=== PATIENT | female | born 1940 | race Caucasian/White ===

== ENCOUNTER 2021-07-09 11:28 | Inpatient (IN) ==
[2021-07-09] MEDS ORDERED: Isovue-370 500 ML BOTTLE IVP ONE ×2 (11:37→13:04)
[2021-07-09 12:23] LABS: Bilirubin,Urine Negative (Negative); Blood,Urine Negative (Negative); Clarity,Urine Clear (Clear); Color,Urine Yellow (Yellow); Glucose,Urine (UA) Normal (Normal); Ketones,Urine 15 mg/dL (Negative); Leukocyte Esterase,Urine Negative (Negative); Nitrite,Urine Negative (Negative); PH,Urine 5.5 pH Units (5.0-8.0); Protein,Urine 30 mg/dL (Neg-Trace); Specific Gravity,Urine >= 1.030 (1.010-1.025); Urobilinogen,Urine Normal (Normal)
[2021-07-09 12:28] LABS: Amphetamine Screen,Urine Negative ng/mL (Cutoff=1000); Barbiturate Screen,Urine Negative ng/mL (Cutoff=200); Benzodiazepines Screen,Urine Negative ng/mL (Cutoff=200); Cannabinoid Screen,Urine Negative ng/mL (Cutoff = 50); Cocaine Screen,Urine Negative ng/mL (Cutoff= 300); Opiate Screen,Urine Negative ng/mL (Cutoff=300); Phencyclidine Screen,Urine Negative ng/mL (Cutoff=25)
[2021-07-09 12:36] LABS: Hyaline Casts,Urine Moderate per lpf (None Seen); Mucus,Urine Few per lpf (None-Few); RBC,Urine 0-3 per hpf (0-3); WBC,Urine 0-3 per hpf (0-3)
[2021-07-09 12:39] LABS: Hemoglobin 7.9 g/dL (11.5-15.4)
[2021-07-09 12:41] LABS: Immature Platelets 8.5 % (1.1-6.1); Mean Corpuscular HGB Conc 31.6 g/dL (31.6-35.5); Mean Corpuscular Volume 69.6 fL (83.0-100.0); Mean Platelet Volume 10.2 fL (9.4-12.4); Red Blood Count 3.59 M/mcL (3.82-4.97); Red Cell Distribution Width 18.5 % (11.5-14.5)
[2021-07-09 12:49] LABS: INR 1.8
[2021-07-09 12:51] LABS: Activated Partial Thrombo Time 42.5 Seconds (26.0-36.0)
[2021-07-09] MEDS ORDERED: cefTRIAXone 1,000 MG in 0.9 % Sodium Chloride Mini Bag 100 ML IVPB ONE (12:55)
[2021-07-09 13:00] LABS: BUN/Creatinine Ratio 109 (6-26); Blood Urea Nitrogen 37 mg/dL (8-23); Calcium 9.5 mg/dL (8.6-10.3); Carbon Dioxide 22 mEq/L (23-29); Chloride 97 mEq/L (98-107); Creatine Kinase 317 Units/L (30-223); Ethanol < 10 mg/dL (Less than 10); Glucose 84 mg/dL (70-105); Osmolality,Calculated 274 (280-300); Potassium 4.3 mEq/L (3.5-5.1); Sodium 128 mEq/L (136-145); Troponin I < 0.03 ng/mL (< 0.04); eGFR For African Americans > 60 (> 60); eGFR For Non-African Americans > 60 (> 60)
[2021-07-09 13:30] LABS: Influenza A PCR Negative (Negative); Influenza B PCR Negative (Negative); Resp. Syncytial Virus PCR Negative (Negative); SARS-CoV-2 by PCR (In House) Negative (Negative)
[2021-07-09] MEDS ORDERED: Ipratropium/Albuterol Neb 3 ML IH PRN (15:20)
[2021-07-09 15:40] LABS: C-Reactive Protein 95 mg/L (Less than 10)
[2021-07-09] MEDS: 0.9 % Sodium Chloride 1,000 ML IVC SCH (15:50)
[2021-07-09] MEDS ORDERED: Perflutren Lipid Microsphere 1.3 ML in 0.9 % Sodium Chloride 8.7 ML IVP PRN (15:56)
[2021-07-09] MEDS ORDERED: Dextrose Gel 15 GM/37.5 ML TUBE PO PRN ×2 (20:32)
[2021-07-09] MEDS ORDERED: D5% in Water 1,000 ML IVC PRN (20:32)
[2021-07-09] MEDS: *HR* Dextrose 50 % in Water (Syg) 50 ML SYRINGE IVP PRN ×2 (20:41→23:32)
[2021-07-09] MEDS: Piperacillin/Tazobactam 3.375 GM in 0.9 % Sodium Chloride Mini Bag 100 ML IVPB SCH (23:38)
[2021-07-10 06:24] LABS: Alanine Aminotransferase 106 Units/L (7-52); Albumin 2.7 g/dL (3.5-5.7); Albumin/Globulin Ratio 0.9 (1.1-2.2); Alkaline Phosphatase 99 Units/L (34-104); Aspartate Amino Transferase 138 Units/L (13-39); BUN/Creatinine Ratio 70 (6-26); Bilirubin,Total 0.7 mg/dL (0.3-1.0); Blood Urea Nitrogen 39 mg/dL (8-23); Calcium 9.1 mg/dL (8.6-10.3); Carbon Dioxide 20 mEq/L (23-29); Chloride 101 mEq/L (98-107); Chol/HDL Ratio 2.3 (0-4.9); Cholesterol 100 mg/dL (< 200); Globulin 2.9 g/dL (2.4-3.5); Glucose 73 mg/dL (70-105); HDL Cholesterol 44 mg/dL (40-59); LDL Cholesterol,Calculated 44 mg/dL (< 100); Osmolality,Calculated 278 (280-300); Potassium 4.8 mEq/L (3.5-5.1); Sodium 130 mEq/L (136-145); Total Protein 5.6 g/dL (6.4-8.9); Triglycerides 59 mg/dL (< 150); eGFR For African Americans > 60 (> 60); eGFR For Non-African Americans > 60 (> 60)
[2021-07-10] MEDS: *HR* Enoxaparin 40 MG/0.4 ML SYRINGE SQ SCH (06:37)
[2021-07-10] MEDS: 0.9 % Sodium Chloride 1,000 ML IVC SCH (08:15)
[2021-07-10] MEDS: Aspirin Enteric Coated 81 MG Tablet PO SCH (08:16)
[2021-07-10] MEDS: Piperacillin/Tazobactam 3.375 GM in 0.9 % Sodium Chloride Mini Bag 100 ML IVPB SCH ×2 (08:16→23:11)
[2021-07-10] MEDS ORDERED: cefTRIAXone 1,000 MG in Water for inj. (sterile) 10 ML IVP SCH (09:00)
[2021-07-10 10:46] LABS: Basophils % 0.1 %; Eosinophils % 0.1 %; Hemoglobin 7.9 g/dL (11.5-15.4); Monocytes % 4.9 %; Red Cell Distribution Width 18.9 % (11.5-14.5)
[2021-07-10 10:47] LABS: Hematocrit 25.3 % (35.3-44.9); Immature Granulocytes % 0.6 % (0-4); Immature Platelets 9.2 % (1.1-6.1); Lymphocytes # 0.5 K/mcL (0.6-4.6); Lymphocytes % 2.7 %; Mean Corpuscular HGB Conc 31.2 g/dL (31.6-35.5); Mean Corpuscular Hemoglobin 21.9 pg (28.0-33.3); Mean Corpuscular Volume 70.3 fL (83.0-100.0); Monocytes # 0.8 K/mcL (0.0-1.3); Neutrophils # 15.5 K/mcL (1.6-8.9); Nucleated Red Blood Cells 1.2 /100 WBC (0); Platelet Count 184 K/mcL (140-400); Segmented Neutrophils % 91.6 %; White Blood Count 16.9 K/mcL (4.3-11.1)
[2021-07-10 11:07] LABS: Estimated Average Glucose 131 mg/dl; Hemoglobin A1C 6.2 %
[2021-07-10 11:38] LABS: Iron < 10 mcg/dL (50-170)
[2021-07-11 00:55] LABS: Alanine Aminotransferase 97 Units/L (7-52); Albumin 2.3 g/dL (3.5-5.7); Albumin/Globulin Ratio 0.9 (1.1-2.2); Alkaline Phosphatase 77 Units/L (34-104); Aspartate Amino Transferase 116 Units/L (13-39); BUN/Creatinine Ratio 105 (6-26); Bilirubin,Total 0.6 mg/dL (0.3-1.0); Blood Urea Nitrogen 42 mg/dL (8-23); Calcium 8.6 mg/dL (8.6-10.3); Carbon Dioxide 22 mEq/L (23-29); Chloride 105 mEq/L (98-107); Globulin 2.6 g/dL (2.4-3.5); Glucose 73 mg/dL (70-105); Osmolality,Calculated 287 (280-300); Potassium 4.1 mEq/L (3.5-5.1); Sodium 134 mEq/L (136-145); Total Protein 4.9 g/dL (6.4-8.9); eGFR For African Americans > 60 (> 60); eGFR For Non-African Americans > 60 (> 60)
[2021-07-11 02:43] LABS: Basophils % 0.1 %; Eosinophils % 0.1 %; Hematocrit 22.2 % (35.3-44.9); Hemoglobin 6.9 g/dL (11.5-15.4); Immature Granulocytes % 0.6 % (0-4); Immature Platelets 6.8 % (1.1-6.1); Lymphocytes # 0.5 K/mcL (0.6-4.6); Lymphocytes % 3.9 %; Mean Corpuscular HGB Conc 31.1 g/dL (31.6-35.5); Mean Corpuscular Hemoglobin 21.8 pg (28.0-33.3); Monocytes # 0.7 K/mcL (0.0-1.3); Neutrophils # 11.7 K/mcL (1.6-8.9); Nucleated Red Blood Cells 1.5 /100 WBC (0); Platelet Count 165 K/mcL (140-400); Red Blood Count 3.17 M/mcL (3.82-4.97); Red Cell Distribution Width 18.7 % (11.5-14.5); Segmented Neutrophils % 90.3 %; White Blood Count 12.9 K/mcL (4.3-11.1)
[2021-07-11] MEDS: *HR* Dextrose 50 % in Water (Syg) 50 ML SYRINGE IVP PRN (04:00)
[2021-07-11] MEDS: *HR* Enoxaparin 40 MG/0.4 ML SYRINGE SQ SCH (04:31)
[2021-07-11] MEDS ORDERED: 0.9 % Sodium Chloride 250 ML ONE (06:59)
[2021-07-11] MEDS: Aspirin Enteric Coated 81 MG Tablet PO SCH (07:19)
[2021-07-11] MEDS ORDERED: Iron Sucrose Complex 200 MG in 0.9 % Sodium Chloride 100 ML IVPB ONE (07:58)
[2021-07-11 08:40] LABS: ABG Base Excess -2 mEq/L (-2 to 3); ABG HCO3 24 mEq/L (21-27); ABG Oxygen Saturation 96 % (95-98); ABG PCO2 42 mmHg (35-45); ABG PH 7.36 pH Units (7.32-7.45); ABG PO2 88 mmHg (85-104); ABG TCO2 25 mEq/L (20-26)
[2021-07-11] MEDS ORDERED: Furosemide 20 MG/2 ML VIAL IVP ONE ×2 (09:45→14:00)
[2021-07-11] MEDS: Piperacillin/Tazobactam 3.375 GM in 0.9 % Sodium Chloride Mini Bag 100 ML IVPB SCH ×3 (11:41→23:21)
[2021-07-11] MEDS ORDERED: Bumetanide 1 MG/4 ML VIAL IVP SCH (17:00)
[2021-07-11 17:45] LABS: Hematocrit 27.9 % (35.3-44.9)
[2021-07-11 17:47] LABS: Hemoglobin 8.8 g/dL (11.5-15.4)
[2021-07-11 21:51] LABS: BUN/Creatinine Ratio 58 (6-26); Blood Urea Nitrogen 38 mg/dL (8-23); Calcium 8.8 mg/dL (8.6-10.3); Carbon Dioxide 24 mEq/L (23-29); Chloride 103 mEq/L (98-107); Glucose 92 mg/dL (70-105); Osmolality,Calculated 295 (280-300); Potassium 3.7 mEq/L (3.5-5.1); Sodium 138 mEq/L (136-145); eGFR For African Americans > 60 (> 60); eGFR For Non-African Americans > 60 (> 60)
[2021-07-12 03:24] LABS: Alanine Aminotransferase 121 Units/L (7-52); Albumin 2.6 g/dL (3.5-5.7); Albumin/Globulin Ratio 0.9 (1.1-2.2); Alkaline Phosphatase 96 Units/L (34-104); Aspartate Amino Transferase 137 Units/L (13-39); BUN/Creatinine Ratio 61 (6-26); Bilirubin,Total 1.1 mg/dL (0.3-1.0); Blood Urea Nitrogen 39 mg/dL (8-23); Calcium 8.9 mg/dL (8.6-10.3); Carbon Dioxide 26 mEq/L (23-29); Chloride 104 mEq/L (98-107); Globulin 2.9 g/dL (2.4-3.5); Glucose 104 mg/dL (70-105); Osmolality,Calculated 300 (280-300); Potassium 3.3 mEq/L (3.5-5.1); Sodium 140 mEq/L (136-145); Total Protein 5.5 g/dL (6.4-8.9); Vancomycin,Trough 9 mcg/mL (5-10); eGFR For African Americans > 60 (> 60); eGFR For Non-African Americans > 60 (> 60)
[2021-07-12 03:26] LABS: Basophils % 0.1 %; Mean Corpuscular Volume 71.8 fL (83.0-100.0)
[2021-07-12 03:28] LABS: Hematocrit 27.7 % (35.3-44.9); Hemoglobin 8.9 g/dL (11.5-15.4); Immature Granulocytes % 0.8 % (0-4); Lymphocytes # 0.5 K/mcL (0.6-4.6); Lymphocytes % 6.5 %; Mean Corpuscular HGB Conc 32.1 g/dL (31.6-35.5); Mean Corpuscular Hemoglobin 23.1 pg (28.0-33.3); Monocytes # 0.5 K/mcL (0.0-1.3); Monocytes % 6.6 %; Neutrophils # 6.8 K/mcL (1.6-8.9); Nucleated Red Blood Cells 3.3 /100 WBC (0); Platelet Count 167 K/mcL (140-400); Red Blood Count 3.86 M/mcL (3.82-4.97); Red Cell Distribution Width 20.7 % (11.5-14.5); White Blood Count 7.9 K/mcL (4.3-11.1)
[2021-07-12] MEDS: *HR* Enoxaparin 40 MG/0.4 ML SYRINGE SQ SCH (06:13)
[2021-07-12] MEDS: Piperacillin/Tazobactam 3.375 GM in 0.9 % Sodium Chloride Mini Bag 100 ML IVPB SCH ×2 (07:37→17:55)
[2021-07-12] MEDS: Bumetanide 1 MG/4 ML VIAL IVP SCH ×2 (07:38→17:27)
[2021-07-12] MEDS: Aspirin Enteric Coated 81 MG Tablet PO SCH (07:39)
[2021-07-12] MEDS: carvediloL 6.25 MG TABLET PO SCH (17:35)
[2021-07-13] MEDS: Piperacillin/Tazobactam 3.375 GM in 0.9 % Sodium Chloride Mini Bag 100 ML IVPB SCH ×4 (00:13→23:10)
[2021-07-13 05:22] LABS: Hemoglobin 8.5 g/dL (11.5-15.4); Immature Granulocytes % 0.9 % (0-4); Nucleated Red Blood Cells 2.2 /100 WBC (0)
[2021-07-13 05:24] LABS: Basophils % 0.3 %; Eosinophils # 0.1 K/mcL (0.0-0.6); Hematocrit 26.7 % (35.3-44.9); Immature Platelets 5.9 % (1.1-6.1); Lymphocytes # 0.9 K/mcL (0.6-4.6); Lymphocytes % 14.8 %; Mean Corpuscular HGB Conc 31.8 g/dL (31.6-35.5); Mean Corpuscular Hemoglobin 22.9 pg (28.0-33.3); Monocytes # 0.5 K/mcL (0.0-1.3); Monocytes % 7.9 %; Neutrophils # 4.4 K/mcL (1.6-8.9); Platelet Count 148 K/mcL (140-400); Red Blood Count 3.71 M/mcL (3.82-4.97); Red Cell Distribution Width 20.7 % (11.5-14.5); Segmented Neutrophils % 75.1 %; White Blood Count 5.8 K/mcL (4.3-11.1)
[2021-07-13 05:37] LABS: Alanine Aminotransferase 105 Units/L (7-52); Albumin 2.4 g/dL (3.5-5.7); Albumin/Globulin Ratio 0.9 (1.1-2.2); Alkaline Phosphatase 87 Units/L (34-104); Aspartate Amino Transferase 114 Units/L (13-39); BUN/Creatinine Ratio 63 (6-26); Bilirubin,Total 0.8 mg/dL (0.3-1.0); Blood Urea Nitrogen 36 mg/dL (8-23); Calcium 8.6 mg/dL (8.6-10.3); Carbon Dioxide 28 mEq/L (23-29); Chloride 104 mEq/L (98-107); Globulin 2.8 g/dL (2.4-3.5); Glucose 91 mg/dL (70-105); Osmolality,Calculated 298 (280-300); Potassium 3.4 mEq/L (3.5-5.1); Sodium 140 mEq/L (136-145); Total Protein 5.2 g/dL (6.4-8.9); eGFR For African Americans > 60 (> 60); eGFR For Non-African Americans > 60 (> 60)
[2021-07-13] MEDS: *HR* Enoxaparin 40 MG/0.4 ML SYRINGE SQ SCH (05:51)
[2021-07-13] MEDS: Bumetanide 1 MG/4 ML VIAL IVP SCH ×2 (07:49→16:26)
[2021-07-13] MEDS: carvediloL 6.25 MG TABLET PO SCH ×2 (07:49→16:26)
[2021-07-13] MEDS: Potassium Chloride Elixir 20 MEQ/15 ML UDC PO ONE (07:49)
[2021-07-13] MEDS: Aspirin Enteric Coated 81 MG Tablet PO SCH (07:51)
[2021-07-13 08:07] LABS: Magnesium 1.4 mg/dL (1.6-2.6)
[2021-07-13] MEDS: Potassium Chloride Elixir 20 MEQ/15 ML UDC PO SCH (23:09)
[2021-07-14] MEDS: *HR* Enoxaparin 40 MG/0.4 ML SYRINGE SQ SCH (05:23)
[2021-07-14 05:47] LABS: Hematocrit 27.2 % (35.3-44.9); Hemoglobin 8.7 g/dL (11.5-15.4); Immature Platelets 6.4 % (1.1-6.1); Mean Corpuscular Hemoglobin 23.2 pg (28.0-33.3); Mean Corpuscular Volume 72.5 fL (83.0-100.0); Platelet Count 134 K/mcL (140-400); Red Blood Count 3.75 M/mcL (3.82-4.97); Red Cell Distribution Width 21.2 % (11.5-14.5); White Blood Count 5.5 K/mcL (4.3-11.1)
[2021-07-14 06:05] LABS: BUN/Creatinine Ratio 50 (6-26); Blood Urea Nitrogen 45 mg/dL (8-23); Calcium 8.8 mg/dL (8.6-10.3); Carbon Dioxide 27 mEq/L (23-29); Chloride 104 mEq/L (98-107); Glucose 130 mg/dL (70-105); Magnesium 1.3 mg/dL (1.6-2.6); Osmolality,Calculated 303 (280-300); Potassium 3.8 mEq/L (3.5-5.1); Sodium 140 mEq/L (136-145); eGFR For African Americans > 60 (> 60); eGFR For Non-African Americans 60 (> 60)
[2021-07-14] MEDS: Piperacillin/Tazobactam 3.375 GM in 0.9 % Sodium Chloride Mini Bag 100 ML IVPB SCH ×3 (07:05→22:17)
[2021-07-14] MEDS: Potassium Chloride Elixir 20 MEQ/15 ML UDC PO SCH ×2 (09:49→22:16)
[2021-07-14] MEDS: Bumetanide 1 MG/4 ML VIAL IVP SCH ×2 (10:57→16:35)
[2021-07-14] MEDS: RisperiDAL 3 MG TABLET PO SCH (11:32)
[2021-07-14] MEDS: Aspirin Enteric Coated 81 MG Tablet PO SCH (11:32)
[2021-07-14] MEDS: carvediloL 6.25 MG TABLET PO SCH ×2 (11:36→16:32)
[2021-07-15 04:48] LABS: Hematocrit 28.9 % (35.3-44.9); Hemoglobin 9.5 g/dL (11.5-15.4); Immature Platelets 11.2 % (1.1-6.1); Mean Corpuscular HGB Conc 32.9 g/dL (31.6-35.5); Mean Corpuscular Hemoglobin 23.6 pg (28.0-33.3); Mean Corpuscular Volume 71.9 fL (83.0-100.0); Platelet Count 120 K/mcL (140-400); Red Blood Count 4.02 M/mcL (3.82-4.97); Red Cell Distribution Width 21.8 % (11.5-14.5); White Blood Count 5.7 K/mcL (4.3-11.1)
[2021-07-15 05:03] LABS: BUN/Creatinine Ratio 53 (6-26); Blood Urea Nitrogen 50 mg/dL (8-23); Calcium 8.9 mg/dL (8.6-10.3); Carbon Dioxide 26 mEq/L (23-29); Chloride 105 mEq/L (98-107); Glucose 99 mg/dL (70-105); Magnesium 1.8 mg/dL (1.6-2.6); Osmolality,Calculated 307 (280-300); Potassium 4.2 mEq/L (3.5-5.1); Sodium 142 mEq/L (136-145); eGFR For African Americans > 60 (> 60); eGFR For Non-African Americans 57 (> 60)
[2021-07-15] MEDS: *HR* Enoxaparin 40 MG/0.4 ML SYRINGE SQ SCH (06:02)
[2021-07-15] MEDS: Piperacillin/Tazobactam 3.375 GM in 0.9 % Sodium Chloride Mini Bag 100 ML IVPB SCH ×3 (06:03→23:26)
[2021-07-15] MEDS: Bumetanide 1 MG/4 ML VIAL IVP SCH ×2 (07:31→16:35)
[2021-07-15] MEDS: carvediloL 6.25 MG TABLET PO SCH ×2 (07:31→16:36)
[2021-07-15] MEDS: RisperiDAL 3 MG TABLET PO SCH (07:32)
[2021-07-15] MEDS: Potassium Chloride Elixir 20 MEQ/15 ML UDC PO SCH ×2 (07:32→21:40)
[2021-07-15] MEDS: Aspirin Enteric Coated 81 MG Tablet PO SCH (07:32)
[2021-07-15 09:53] LABS: Transferrin 308
[2021-07-16] MEDS: *HR* Enoxaparin 40 MG/0.4 ML SYRINGE SQ SCH (05:48)
[2021-07-16 07:48] LABS: BUN/Creatinine Ratio 61 (6-26); Blood Urea Nitrogen 50 mg/dL (8-23); Calcium 8.8 mg/dL (8.6-10.3); Carbon Dioxide 29 mEq/L (23-29); Chloride 109 mEq/L (98-107); Glucose 102 mg/dL (70-105); Osmolality,Calculated 316 (280-300); Potassium 3.6 mEq/L (3.5-5.1); Sodium 146 mEq/L (136-145); eGFR For African Americans > 60 (> 60); eGFR For Non-African Americans > 60 (> 60)
[2021-07-16 07:51] LABS: Red Cell Distribution Width 21.9 % (11.5-14.5)
[2021-07-16 07:56] LABS: Hematocrit 28.4 % (35.3-44.9); Mean Corpuscular HGB Conc 31.7 g/dL (31.6-35.5)
[2021-07-16 07:58] LABS: Immature Platelets 9.1 % (1.1-6.1); Mean Corpuscular Hemoglobin 23.2 pg (28.0-33.3); Mean Corpuscular Volume 73.2 fL (83.0-100.0); Red Blood Count 3.88 M/mcL (3.82-4.97); White Blood Count 4.2 K/mcL (4.3-11.1)
[2021-07-16 08:34] LABS: Platelet Count 97 K/mcL (140-400)
[2021-07-16] MEDS: Aspirin Enteric Coated 81 MG Tablet PO SCH (10:24)
[2021-07-16] MEDS: carvediloL 6.25 MG TABLET PO SCH ×2 (10:24→16:21)
[2021-07-16] MEDS: RisperiDAL 3 MG TABLET PO SCH (10:24)
[2021-07-16] MEDS: Bumetanide 1 MG/4 ML VIAL IVP SCH ×2 (10:25→16:26)
[2021-07-16] MEDS: Piperacillin/Tazobactam 3.375 GM in 0.9 % Sodium Chloride Mini Bag 100 ML IVPB SCH ×3 (10:25→23:36)
[2021-07-16] MEDS: Potassium Chloride Elixir 20 MEQ/15 ML UDC PO SCH ×2 (10:25→19:46)
[2021-07-16] MEDS ORDERED: E-Z-HD (BARIUM SULF) SUSPENSION PO ONE (15:30)
[2021-07-16] MEDS ORDERED: E-Z-PAQUE (BARIUM SULF) SUSP 1 BOTTLE PO ONE (15:30)
[2021-07-17 03:11] LABS: Basophils % 0.3 %
[2021-07-17 03:12] LABS: Eosinophils # 0.1 K/mcL (0.0-0.6); Eosinophils % 3.5 %; Hematocrit 28.6 % (35.3-44.9); Hemoglobin 8.7 g/dL (11.5-15.4); Immature Granulocytes % 0.5 % (0-4); Immature Platelets 8.7 % (1.1-6.1); Lymphocytes # 0.9 K/mcL (0.6-4.6); Lymphocytes % 22.3 %; Mean Corpuscular HGB Conc 30.4 g/dL (31.6-35.5); Mean Corpuscular Volume 75.5 fL (83.0-100.0); Monocytes # 0.3 K/mcL (0.0-1.3); Monocytes % 7.8 %; Neutrophils # 2.6 K/mcL (1.6-8.9); Nucleated Red Blood Cells 1.3 /100 WBC (0); Red Blood Count 3.79 M/mcL (3.82-4.97); Segmented Neutrophils % 65.6 %
[2021-07-17 03:20] LABS: Platelet Count 94 K/mcL (140-400)
[2021-07-17 03:26] LABS: BUN/Creatinine Ratio 71 (6-26); Blood Urea Nitrogen 48 mg/dL (8-23); Calcium 8.4 mg/dL (8.6-10.3); Carbon Dioxide 30 mEq/L (23-29); Chloride 111 mEq/L (98-107); Glucose 91 mg/dL (70-105); Osmolality,Calculated 312 (280-300); Potassium 3.3 mEq/L (3.5-5.1); Sodium 145 mEq/L (136-145); eGFR For African Americans > 60 (> 60); eGFR For Non-African Americans > 60 (> 60)
[2021-07-17] MEDS ORDERED: Potassium Chloride Elixir 20 MEQ/15 ML UDC PO ONE (07:30)
[2021-07-17] MEDS: Piperacillin/Tazobactam 3.375 GM in 0.9 % Sodium Chloride Mini Bag 100 ML IVPB SCH ×3 (08:31→22:32)
[2021-07-17] MEDS: Aspirin Enteric Coated 81 MG Tablet PO SCH (08:31)
[2021-07-17] MEDS: RisperiDAL 3 MG TABLET PO SCH (08:31)
[2021-07-17] MEDS: Potassium Chloride Elixir 20 MEQ/15 ML UDC PO SCH ×2 (08:31→20:37)
[2021-07-17] MEDS: Bumetanide 1 MG/4 ML VIAL IVP SCH (08:34)
[2021-07-17] MEDS: carvediloL 6.25 MG TABLET PO SCH ×2 (08:39→17:38)
[2021-07-17] MEDS: Bumetanide 1 MG TABLET PO SCH (17:38)
[2021-07-18 04:53] LABS: Red Cell Distribution Width 22.5 % (11.5-14.5)
[2021-07-18 04:55] LABS: Hematocrit 29.8 % (35.3-44.9); Immature Platelets 13.6 % (1.1-6.1); Mean Corpuscular HGB Conc 30.2 g/dL (31.6-35.5); Mean Corpuscular Hemoglobin 23.2 pg (28.0-33.3); Mean Corpuscular Volume 76.8 fL (83.0-100.0); Red Blood Count 3.88 M/mcL (3.82-4.97); White Blood Count 4.9 K/mcL (4.3-11.1)
[2021-07-18 05:14] LABS: BUN/Creatinine Ratio 69 (6-26); Blood Urea Nitrogen 42 mg/dL (8-23); Calcium 8.4 mg/dL (8.6-10.3); Carbon Dioxide 26 mEq/L (23-29); Chloride 108 mEq/L (98-107); Glucose 92 mg/dL (70-105); Osmolality,Calculated 300 (280-300); Potassium 4.2 mEq/L (3.5-5.1); Sodium 140 mEq/L (136-145); eGFR For African Americans > 60 (> 60); eGFR For Non-African Americans > 60 (> 60)
[2021-07-18 06:04] LABS: Platelet Count 84 K/mcL (140-400)
[2021-07-18] MEDS: carvediloL 6.25 MG TABLET PO SCH ×2 (08:04→16:52)
[2021-07-18] MEDS: Aspirin Enteric Coated 81 MG Tablet PO SCH (08:05)
[2021-07-18] MEDS: Bumetanide 1 MG TABLET PO SCH ×2 (08:05→16:51)
[2021-07-18] MEDS: Piperacillin/Tazobactam 3.375 GM in 0.9 % Sodium Chloride Mini Bag 100 ML IVPB SCH ×2 (08:05→16:52)
[2021-07-18] MEDS: RisperiDAL 3 MG TABLET PO SCH (08:05)
[2021-07-18] MEDS: Potassium Chloride Elixir 20 MEQ/15 ML UDC PO SCH ×2 (08:06→21:26)
[2021-07-19] MEDS: Piperacillin/Tazobactam 3.375 GM in 0.9 % Sodium Chloride Mini Bag 100 ML IVPB SCH ×4 (00:11→23:10)
[2021-07-19] MEDS: Aspirin Enteric Coated 81 MG Tablet PO SCH (09:38)
[2021-07-19] MEDS: RisperiDAL 3 MG TABLET PO SCH (09:38)
[2021-07-19] MEDS: carvediloL 6.25 MG TABLET PO SCH ×2 (09:38→15:58)
[2021-07-19] MEDS: Bumetanide 1 MG TABLET PO SCH ×2 (09:38→15:58)
[2021-07-19] MEDS: Potassium Chloride Elixir 20 MEQ/15 ML UDC PO SCH ×2 (09:39→19:47)
[2021-07-19 11:08] LABS: Hemoglobin 9.3 g/dL (11.5-15.4); Red Cell Distribution Width 22.5 % (11.5-14.5)
[2021-07-19 11:11] LABS: Hematocrit 30.4 % (35.3-44.9); Immature Platelets 14.7 % (1.1-6.1); Mean Corpuscular HGB Conc 30.6 g/dL (31.6-35.5); Mean Corpuscular Hemoglobin 23.6 pg (28.0-33.3); Mean Corpuscular Volume 77.2 fL (83.0-100.0); Red Blood Count 3.94 M/mcL (3.82-4.97); White Blood Count 5.5 K/mcL (4.3-11.1)
[2021-07-19 11:16] LABS: Platelet Count 95 K/mcL (140-400)
[2021-07-19 11:23] LABS: BUN/Creatinine Ratio 54 (6-26); Blood Urea Nitrogen 39 mg/dL (8-23); Calcium 8.5 mg/dL (8.6-10.3); Carbon Dioxide 27 mEq/L (23-29); Chloride 104 mEq/L (98-107); Glucose 89 mg/dL (70-105); Osmolality,Calculated 293 (280-300); Potassium 4.1 mEq/L (3.5-5.1); Sodium 137 mEq/L (136-145); eGFR For African Americans > 60 (> 60); eGFR For Non-African Americans > 60 (> 60)
[2021-07-20 07:33] LABS: Mean Corpuscular Volume 76.5 fL (83.0-100.0); Red Blood Count 3.79 M/mcL (3.82-4.97)
[2021-07-20 07:34] LABS: Immature Platelets 10.5 % (1.1-6.1); Mean Corpuscular Hemoglobin 23.7 pg (28.0-33.3); Platelet Count 121 K/mcL (140-400); Red Cell Distribution Width 22.4 % (11.5-14.5)
[2021-07-20] MEDS: Aspirin Enteric Coated 81 MG Tablet PO SCH (08:29)
[2021-07-20] MEDS: carvediloL 6.25 MG TABLET PO SCH ×2 (08:29→17:24)
[2021-07-20] MEDS: RisperiDAL 3 MG TABLET PO SCH (08:29)
[2021-07-20] MEDS: Bumetanide 1 MG TABLET PO SCH ×2 (08:29→17:24)
[2021-07-20] MEDS: Potassium Chloride Elixir 20 MEQ/15 ML UDC PO SCH ×2 (08:30→19:36)
[2021-07-21 03:57] LABS: Red Cell Distribution Width 25.2 % (11.5-14.5)
[2021-07-21 03:59] LABS: Hemoglobin 9.3 g/dL (11.5-15.4); Immature Platelets 9.7 % (1.1-6.1); Mean Corpuscular Volume 77.5 fL (83.0-100.0); Platelet Count 136 K/mcL (140-400); Red Blood Count 3.87 M/mcL (3.82-4.97); White Blood Count 11.3 K/mcL (4.3-11.1)
[2021-07-21 04:18] LABS: BUN/Creatinine Ratio 41 (6-26); Blood Urea Nitrogen 25 mg/dL (8-23); Calcium 8.2 mg/dL (8.6-10.3); Carbon Dioxide 29 mEq/L (23-29); Chloride 105 mEq/L (98-107); Glucose 94 mg/dL (70-105); Osmolality,Calculated 290 (280-300); Potassium 3.8 mEq/L (3.5-5.1); Sodium 138 mEq/L (136-145); eGFR For African Americans > 60 (> 60); eGFR For Non-African Americans > 60 (> 60)
[2021-07-21] MEDS: carvediloL 6.25 MG TABLET PO SCH ×2 (08:47→18:31)
[2021-07-21] MEDS: Bumetanide 1 MG TABLET PO SCH ×2 (08:47→18:32)
[2021-07-21] MEDS: Potassium Chloride Elixir 20 MEQ/15 ML UDC PO SCH ×2 (08:47→20:43)
[2021-07-21] MEDS: Aspirin Enteric Coated 81 MG Tablet PO SCH (08:48)
[2021-07-21] MEDS: RisperiDAL 3 MG TABLET PO SCH (08:48)
[2021-07-21] MEDS: Nystatin POWDER 30 GM BOTTLE TP SCH ×3 (11:39→20:43)
[2021-07-22] MEDS ORDERED: Bumetanide 1 MG TABLET PO SCH (09:00)
[2021-07-22] MEDS: Bumetanide 1 MG TABLET PO SCH ×2 (09:34→17:29)
[2021-07-22] MEDS: Potassium Chloride Elixir 20 MEQ/15 ML UDC PO SCH ×2 (09:34→21:20)
[2021-07-22] MEDS: Aspirin Enteric Coated 81 MG Tablet PO SCH (09:34)
[2021-07-22] MEDS: RisperiDAL 3 MG TABLET PO SCH (09:35)
[2021-07-22] MEDS: Nystatin POWDER 30 GM BOTTLE TP SCH ×3 (09:35→21:56)
[2021-07-22] MEDS: carvediloL 6.25 MG TABLET PO SCH ×2 (09:35→17:29)
[2021-07-23] MEDS: Nystatin POWDER 30 GM BOTTLE TP SCH ×3 (09:27→20:10)
[2021-07-23] MEDS: RisperiDAL 3 MG TABLET PO SCH (09:27)
[2021-07-23] MEDS: Aspirin Enteric Coated 81 MG Tablet PO SCH (09:27)
[2021-07-23] MEDS: Potassium Chloride Elixir 20 MEQ/15 ML UDC PO SCH ×3 (09:27→20:33)
[2021-07-23] MEDS: carvediloL 6.25 MG TABLET PO SCH ×2 (09:28→16:29)
[2021-07-23 11:53] LABS: Hemoglobin 8.5 g/dL (11.5-15.4)
[2021-07-23 11:55] LABS: Hematocrit 27.7 % (35.3-44.9); Immature Platelets 6.2 % (1.1-6.1); Mean Corpuscular HGB Conc 30.7 g/dL (31.6-35.5); Mean Corpuscular Hemoglobin 24.4 pg (28.0-33.3); Mean Corpuscular Volume 79.4 fL (83.0-100.0); Mean Platelet Volume 10.8 fL (9.4-12.4); Red Blood Count 3.49 M/mcL (3.82-4.97); Red Cell Distribution Width 26.3 % (11.5-14.5); White Blood Count 9.1 K/mcL (4.3-11.1)
[2021-07-23 12:45] LABS: BUN/Creatinine Ratio 32 (6-26); Blood Urea Nitrogen 19 mg/dL (8-23); Calcium 7.8 mg/dL (8.6-10.3); Carbon Dioxide 29 mEq/L (23-29); Chloride 103 mEq/L (98-107); Glucose 108 mg/dL (70-105); Osmolality,Calculated 285 (280-300); Potassium 3.6 mEq/L (3.5-5.1); Sodium 136 mEq/L (136-145); eGFR For African Americans > 60 (> 60); eGFR For Non-African Americans > 60 (> 60)
[2021-07-23] MEDS ORDERED: Furosemide Oral Soln 40 MG/4 ML UDC PO SCH (14:00)
[2021-07-23] MEDS: Furosemide 40 MG TABLET PO SCH (16:30)
[2021-07-24] MEDS: carvediloL 6.25 MG TABLET PO SCH ×2 (08:41→17:03)
[2021-07-24] MEDS: Aspirin 81 MG TAB.CHEW PO SCH (08:41)
[2021-07-24] MEDS: RisperiDAL 3 MG TABLET PO SCH (08:41)
[2021-07-24] MEDS: Nystatin POWDER 30 GM BOTTLE TP SCH ×3 (08:42→21:53)
[2021-07-24] MEDS: Potassium Chloride Elixir 20 MEQ/15 ML UDC PO SCH ×2 (08:42→21:48)
[2021-07-24] MEDS: Furosemide 40 MG TABLET PO SCH (14:10)
[2021-07-25] MEDS: carvediloL 6.25 MG TABLET PO SCH ×2 (07:29→16:54)
[2021-07-25] MEDS: Potassium Chloride Elixir 20 MEQ/15 ML UDC PO SCH ×2 (07:29→20:39)
[2021-07-25] MEDS: Nystatin POWDER 30 GM BOTTLE TP SCH ×3 (07:29→20:42)
[2021-07-25] MEDS: Aspirin 81 MG TAB.CHEW PO SCH (07:29)
[2021-07-25] MEDS: RisperiDAL 3 MG TABLET PO SCH (07:29)
[2021-07-25 09:06] LABS: Hematocrit 30.9 % (35.3-44.9); Hemoglobin 9.7 g/dL (11.5-15.4); Mean Corpuscular HGB Conc 31.4 g/dL (31.6-35.5); Mean Corpuscular Hemoglobin 24.4 pg (28.0-33.3); Mean Corpuscular Volume 77.6 fL (83.0-100.0); Mean Platelet Volume 10.1 fL (9.4-12.4); Platelet Count 218 K/mcL (140-400); Red Blood Count 3.98 M/mcL (3.82-4.97); Red Cell Distribution Width 27.4 % (11.5-14.5); White Blood Count 6.1 K/mcL (4.3-11.1)
[2021-07-25] MEDS ORDERED: E-Z-PAQUE (BARIUM SULF) SUSP 1 BOTTLE PO ONE (14:58)
[2021-07-25] MEDS ORDERED: E-Z-HD (BARIUM SULF) SUSPENSION PO ONE (14:58)
[2021-07-25] MEDS ORDERED: methylPREDNISolone 125 MG/2 ML VIAL IVP ONE (18:44)
[2021-07-26] MEDS: carvediloL 6.25 MG TABLET PO SCH ×2 (07:50→16:16)
[2021-07-26] MEDS: Aspirin 81 MG TAB.CHEW PO SCH (07:50)
[2021-07-26] MEDS: Potassium Chloride Elixir 20 MEQ/15 ML UDC PO SCH ×2 (07:50→21:03)
[2021-07-26] MEDS: RisperiDAL 3 MG TABLET PO SCH (07:50)
[2021-07-26] MEDS: predniSONE 20 MG TABLET PO SCH (07:50)
[2021-07-26] MEDS: Nystatin POWDER 30 GM BOTTLE TP SCH ×3 (07:52→21:04)
[2021-07-26 08:03] LABS: BUN/Creatinine Ratio 41 (6-26); Blood Urea Nitrogen 20 mg/dL (8-23); Calcium 8.3 mg/dL (8.6-10.3); Carbon Dioxide 28 mEq/L (23-29); Chloride 103 mEq/L (98-107); Glucose 142 mg/dL (70-105); Osmolality,Calculated 285 (280-300); Potassium 4.3 mEq/L (3.5-5.1); Sodium 135 mEq/L (136-145); eGFR For African Americans > 60 (> 60); eGFR For Non-African Americans > 60 (> 60)
[2021-07-26 08:17] LABS: Red Blood Count 4.05 M/mcL (3.82-4.97); Red Cell Distribution Width 27.9 % (11.5-14.5)
[2021-07-26 08:19] LABS: Hematocrit 31.9 % (35.3-44.9); Immature Platelets 4.1 % (1.1-6.1); Mean Corpuscular HGB Conc 31.3 g/dL (31.6-35.5); Mean Corpuscular Hemoglobin 24.7 pg (28.0-33.3); Mean Corpuscular Volume 78.8 fL (83.0-100.0); Platelet Count 224 K/mcL (140-400); White Blood Count 4.4 K/mcL (4.3-11.1)
[2021-07-26 11:40] LABS: Iron 34 mcg/dL (50-170)
[2021-07-26 11:55] LABS: Ferritin 86 ng/mL (10-120)
[2021-07-27] MEDS: Potassium Chloride Elixir 20 MEQ/15 ML UDC PO SCH (08:12)
[2021-07-27] MEDS: Aspirin 81 MG TAB.CHEW PO SCH (08:13)
[2021-07-27] MEDS: Nystatin POWDER 30 GM BOTTLE TP SCH ×3 (08:13→18:20)
[2021-07-27] MEDS: carvediloL 6.25 MG TABLET PO SCH (08:13)
[2021-07-27] MEDS: RisperiDAL 3 MG TABLET PO SCH (08:13)
[2021-07-27] MEDS: predniSONE 20 MG TABLET PO SCH (08:13)
[2021-07-27] MEDS: Spironolactone 25 MG TABLET PO SCH (09:30)
[2021-07-28 06:27] LABS: Mean Corpuscular Hemoglobin 24.3 pg (28.0-33.3); Mean Corpuscular Volume 78.2 fL (83.0-100.0); Mean Platelet Volume 10.6 fL (9.4-12.4); Platelet Count 206 K/mcL (140-400); Red Blood Count 3.71 M/mcL (3.82-4.97); Red Cell Distribution Width 28.3 % (11.5-14.5); White Blood Count 4.9 K/mcL (4.3-11.1)
[2021-07-28 06:49] LABS: BUN/Creatinine Ratio 50 (6-26); Blood Urea Nitrogen 25 mg/dL (8-23); Calcium 8.4 mg/dL (8.6-10.3); Carbon Dioxide 28 mEq/L (23-29); Chloride 107 mEq/L (98-107); Glucose 121 mg/dL (70-105); Osmolality,Calculated 280 (280-300); Potassium 4.2 mEq/L (3.5-5.1); Sodium 132 mEq/L (136-145); eGFR For African Americans > 60 (> 60); eGFR For Non-African Americans > 60 (> 60)
[2021-07-28] MEDS: predniSONE 20 MG TABLET PO SCH (08:47)
[2021-07-28] MEDS: Spironolactone 25 MG TABLET PO SCH (08:47)
[2021-07-28] MEDS: Metoprolol XL (24 HR) Succ 25 MG TAB.ER.24H PO SCH (08:47)
[2021-07-28] MEDS: Aspirin 81 MG TAB.CHEW PO SCH (08:48)
[2021-07-28] MEDS: RisperiDAL 3 MG TABLET PO SCH (08:49)
[2021-07-28] MEDS: Nystatin POWDER 30 GM BOTTLE TP SCH ×2 (09:32→15:06)
[2021-07-28] MEDS: Bumetanide 1 MG TABLET PO SCH (11:55)
[2021-07-29] MEDS: Nystatin POWDER 30 GM BOTTLE TP SCH ×3 (02:44→16:51)
[2021-07-29 05:19] LABS: BUN/Creatinine Ratio 49 (6-26); Blood Urea Nitrogen 24 mg/dL (8-23); Calcium 8.5 mg/dL (8.6-10.3); Carbon Dioxide 29 mEq/L (23-29); Chloride 103 mEq/L (98-107); Glucose 121 mg/dL (70-105); Magnesium 1.7 mg/dL (1.6-2.6); Osmolality,Calculated 285 (280-300); Sodium 135 mEq/L (136-145); eGFR For African Americans > 60 (> 60); eGFR For Non-African Americans > 60 (> 60)
[2021-07-29] MEDS: predniSONE 20 MG TABLET PO SCH (08:45)
[2021-07-29] MEDS: Bumetanide 1 MG TABLET PO SCH ×2 (08:45→18:06)
[2021-07-29] MEDS: RisperiDAL 3 MG TABLET PO SCH (08:45)
[2021-07-29] MEDS: Metoprolol XL (24 HR) Succ 25 MG TAB.ER.24H PO SCH (08:45)
[2021-07-29] MEDS: Aspirin 81 MG TAB.CHEW PO SCH (08:45)
[2021-07-29] MEDS: Spironolactone 25 MG TABLET PO SCH (08:45)
[2021-07-30] MEDS: predniSONE 20 MG TABLET PO SCH (07:32)
[2021-07-30] MEDS: Metoprolol XL (24 HR) Succ 25 MG TAB.ER.24H PO SCH (07:32)
[2021-07-30] MEDS: Aspirin 81 MG TAB.CHEW PO SCH (07:32)
[2021-07-30] MEDS: Bumetanide 1 MG TABLET PO SCH ×2 (07:32→16:44)
[2021-07-30] MEDS: RisperiDAL 3 MG TABLET PO SCH (07:32)
[2021-07-30] MEDS: Nystatin POWDER 30 GM BOTTLE TP SCH ×4 (07:32→20:30)
[2021-07-30] MEDS ORDERED: Iron Sucrose Complex 400 MG in 0.9 % Sodium Chloride 250 ML IVPB ONE (09:56)
[2021-07-31 01:24] LABS: Hematocrit 29.6 % (35.3-44.9); Hemoglobin 9.4 g/dL (11.5-15.4); Mean Corpuscular HGB Conc 31.8 g/dL (31.6-35.5); Mean Corpuscular Hemoglobin 25.5 pg (28.0-33.3); Mean Corpuscular Volume 80.2 fL (83.0-100.0); Mean Platelet Volume 9.9 fL (9.4-12.4); Platelet Count 115 K/mcL (140-400); Red Blood Count 3.69 M/mcL (3.82-4.97); Red Cell Distribution Width 29.3 % (11.5-14.5); White Blood Count 5.5 K/mcL (4.3-11.1)
[2021-07-31 01:45] LABS: BUN/Creatinine Ratio 38 (6-26); Blood Urea Nitrogen 22 mg/dL (8-23); Carbon Dioxide 30 mEq/L (23-29); Chloride 102 mEq/L (98-107); Glucose 92 mg/dL (70-105); Osmolality,Calculated 287 (280-300); Potassium 3.6 mEq/L (3.5-5.1); Sodium 137 mEq/L (136-145); eGFR For African Americans > 60 (> 60); eGFR For Non-African Americans > 60 (> 60)
[2021-07-31] MEDS: Bumetanide 1 MG TABLET PO SCH ×2 (08:19→18:44)
[2021-07-31] MEDS: Aspirin 81 MG TAB.CHEW PO SCH (08:19)
[2021-07-31] MEDS: RisperiDAL 3 MG TABLET PO SCH (08:19)
[2021-07-31] MEDS: Iron Sucrose Complex 250 MG in 0.9 % Sodium Chloride 250 ML IVPB SCH (08:20)
[2021-07-31] MEDS: Metoprolol XL (24 HR) Succ 25 MG TAB.ER.24H PO SCH (08:20)
[2021-07-31] MEDS: Nystatin POWDER 30 GM BOTTLE TP SCH ×3 (08:21→20:23)
[2021-07-31 09:53] LABS: % Iron Saturation 10 % (15-50); Transferrin 255 mg/dL (200-400)
[2021-08-01] MEDS: Iron Sucrose Complex 250 MG in 0.9 % Sodium Chloride 250 ML IVPB SCH (08:38)
[2021-08-01] MEDS: Bumetanide 1 MG TABLET PO SCH ×2 (08:39→15:49)
[2021-08-01] MEDS: Nystatin POWDER 30 GM BOTTLE TP SCH ×3 (08:39→18:03)
[2021-08-01] MEDS: RisperiDAL 3 MG TABLET PO SCH (08:39)
[2021-08-01] MEDS: Metoprolol XL (24 HR) Succ 25 MG TAB.ER.24H PO SCH (08:39)
[2021-08-01] MEDS: Aspirin 81 MG TAB.CHEW PO SCH (08:39)
[2021-08-02] MEDS: Aspirin 81 MG TAB.CHEW PO SCH (08:04)
[2021-08-02] MEDS: Metoprolol XL (24 HR) Succ 25 MG TAB.ER.24H PO SCH (08:04)
[2021-08-02] MEDS: RisperiDAL 3 MG TABLET PO SCH (08:04)
[2021-08-02] MEDS: Nystatin POWDER 30 GM BOTTLE TP SCH ×2 (08:05→16:32)
[2021-08-02] MEDS: Nystatin Cream 15 GM TUBE TP PRN (08:05)
[2021-08-02] MEDS: Bumetanide 1 MG TABLET PO SCH ×2 (08:05→16:32)
[2021-08-03] MEDS: Nystatin POWDER 30 GM BOTTLE TP SCH ×4 (00:15→19:36)
[2021-08-03] MEDS: Metoprolol XL (24 HR) Succ 25 MG TAB.ER.24H PO SCH (07:37)
[2021-08-03] MEDS: Bumetanide 1 MG TABLET PO SCH ×2 (07:38→17:27)
[2021-08-03] MEDS: Aspirin 81 MG TAB.CHEW PO SCH (07:38)
[2021-08-03] MEDS: RisperiDAL 3 MG TABLET PO SCH (07:38)
[2021-08-04 02:30] LABS: Hematocrit 29.9 % (35.3-44.9); Hemoglobin 9.2 g/dL (11.5-15.4); Mean Corpuscular HGB Conc 30.8 g/dL (31.6-35.5); Mean Corpuscular Hemoglobin 24.7 pg (28.0-33.3); Mean Corpuscular Volume 80.4 fL (83.0-100.0); Mean Platelet Volume 10.3 fL (9.4-12.4); Platelet Count 161 K/mcL (140-400); Red Blood Count 3.72 M/mcL (3.82-4.97); Red Cell Distribution Width 29.9 % (11.5-14.5); White Blood Count 7.8 K/mcL (4.3-11.1)
[2021-08-04 02:47] LABS: BUN/Creatinine Ratio 35 (6-26); Blood Urea Nitrogen 15 mg/dL (8-23); Calcium 7.9 mg/dL (8.6-10.3); Carbon Dioxide 35 mEq/L (23-29); Chloride 98 mEq/L (98-107); Glucose 91 mg/dL (70-105); Osmolality,Calculated 282 (280-300); Potassium 3.2 mEq/L (3.5-5.1); Sodium 136 mEq/L (136-145); eGFR For African Americans > 60 (> 60); eGFR For Non-African Americans > 60 (> 60)
[2021-08-04] MEDS: Metoprolol XL (24 HR) Succ 25 MG TAB.ER.24H PO SCH (08:09)
[2021-08-04] MEDS: RisperiDAL 3 MG TABLET PO SCH (08:10)
[2021-08-04] MEDS: Bumetanide 1 MG TABLET PO SCH ×2 (08:10→17:15)
[2021-08-04] MEDS: Aspirin 81 MG TAB.CHEW PO SCH (08:10)
[2021-08-04] MEDS: Nystatin POWDER 30 GM BOTTLE TP SCH ×3 (08:10→23:07)
[2021-08-05] MEDS: RisperiDAL 3 MG TABLET PO SCH (08:50)
[2021-08-05] MEDS: Metoprolol XL (24 HR) Succ 25 MG TAB.ER.24H PO SCH (08:50)
[2021-08-05] MEDS: Bumetanide 1 MG TABLET PO SCH ×2 (08:50→16:53)
[2021-08-05] MEDS: Aspirin 81 MG TAB.CHEW PO SCH (08:50)
[2021-08-05] MEDS: Nystatin POWDER 30 GM BOTTLE TP SCH ×3 (08:51→20:40)
[2021-08-06] MEDS: Metoprolol XL (24 HR) Succ 25 MG TAB.ER.24H PO SCH (07:24)
[2021-08-06] MEDS: Aspirin 81 MG TAB.CHEW PO SCH (07:24)
[2021-08-06] MEDS: Bumetanide 1 MG TABLET PO SCH ×2 (07:24→16:43)
[2021-08-06] MEDS: RisperiDAL 3 MG TABLET PO SCH (07:24)
[2021-08-06] MEDS: Nystatin POWDER 30 GM BOTTLE TP SCH ×3 (07:25→19:35)
[2021-08-07] MEDS: RisperiDAL 3 MG TABLET PO SCH (07:58)
[2021-08-07] MEDS: Bumetanide 1 MG TABLET PO SCH ×2 (07:58→16:24)
[2021-08-07] MEDS: Metoprolol XL (24 HR) Succ 25 MG TAB.ER.24H PO SCH (07:58)
[2021-08-07] MEDS: Aspirin 81 MG TAB.CHEW PO SCH (07:58)
[2021-08-07] MEDS: Nystatin POWDER 30 GM BOTTLE TP SCH ×3 (08:19→21:30)
[2021-08-08] MEDS: RisperiDAL 3 MG TABLET PO SCH (09:16)
[2021-08-08] MEDS: Aspirin 81 MG TAB.CHEW PO SCH (09:16)
[2021-08-08] MEDS: Nystatin POWDER 30 GM BOTTLE TP SCH ×3 (09:16→19:10)
[2021-08-08] MEDS: Bumetanide 1 MG TABLET PO SCH ×2 (09:16→16:28)
[2021-08-08] MEDS: Metoprolol XL (24 HR) Succ 25 MG TAB.ER.24H PO SCH (09:16)
[2021-08-09] MEDS: Bumetanide 1 MG TABLET PO SCH ×2 (07:39→16:44)
[2021-08-09] MEDS: RisperiDAL 3 MG TABLET PO SCH (07:39)
[2021-08-09] MEDS: Aspirin 81 MG TAB.CHEW PO SCH (07:39)
[2021-08-09] MEDS: Metoprolol XL (24 HR) Succ 25 MG TAB.ER.24H PO SCH (07:39)
[2021-08-09] MEDS: Nystatin POWDER 30 GM BOTTLE TP SCH ×3 (07:40→20:22)
[2021-08-10] MEDS: Nystatin POWDER 30 GM BOTTLE TP SCH ×3 (07:29→22:19)
[2021-08-10] MEDS: Bumetanide 1 MG TABLET PO SCH ×2 (07:30→16:01)
[2021-08-10] MEDS: RisperiDAL 3 MG TABLET PO SCH (07:30)
[2021-08-10] MEDS: Metoprolol XL (24 HR) Succ 25 MG TAB.ER.24H PO SCH (07:30)
[2021-08-10] MEDS: Aspirin 81 MG TAB.CHEW PO SCH (07:30)
[2021-08-10 19:39] LABS: BUN/Creatinine Ratio 35 (6-26); Blood Urea Nitrogen 25 mg/dL (8-23); Calcium 8.2 mg/dL (8.6-10.3); Carbon Dioxide 32 mEq/L (23-29); Chloride 99 mEq/L (98-107); Glucose 158 mg/dL (70-105); Osmolality,Calculated 294 (280-300); Potassium 3.5 mEq/L (3.5-5.1); Sodium 138 mEq/L (136-145); eGFR For African Americans > 60 (> 60); eGFR For Non-African Americans > 60 (> 60)
[2021-08-11] MEDS: Bumetanide 1 MG TABLET PO SCH ×2 (08:01→15:12)
[2021-08-11] MEDS: Aspirin 81 MG TAB.CHEW PO SCH (08:01)
[2021-08-11] MEDS: RisperiDAL 3 MG TABLET PO SCH (08:01)
[2021-08-11] MEDS: Metoprolol XL (24 HR) Succ 25 MG TAB.ER.24H PO SCH (08:02)
[2021-08-11] MEDS: Nystatin POWDER 30 GM BOTTLE TP SCH ×3 (08:03→21:20)
[2021-08-12] MEDS: RisperiDAL 3 MG TABLET PO SCH (09:11)
[2021-08-12] MEDS: Metoprolol XL (24 HR) Succ 25 MG TAB.ER.24H PO SCH (09:12)
[2021-08-12] MEDS: Bumetanide 1 MG TABLET PO SCH ×2 (09:12→17:31)
[2021-08-12] MEDS: Aspirin 81 MG TAB.CHEW PO SCH (09:13)
[2021-08-12] MEDS: Nystatin POWDER 30 GM BOTTLE TP SCH ×3 (09:15→22:02)
[2021-08-13] MEDS: Nystatin POWDER 30 GM BOTTLE TP SCH ×3 (10:11→20:35)
[2021-08-13] MEDS: Aspirin 81 MG TAB.CHEW PO SCH (10:11)
[2021-08-13] MEDS: RisperiDAL 3 MG TABLET PO SCH (10:11)
[2021-08-13] MEDS: Metoprolol XL (24 HR) Succ 25 MG TAB.ER.24H PO SCH (10:12)
[2021-08-13] MEDS: Bumetanide 1 MG TABLET PO SCH ×2 (10:13→16:56)
[2021-08-14] MEDS: Aspirin 81 MG TAB.CHEW PO SCH (09:07)
[2021-08-14] MEDS: Metoprolol XL (24 HR) Succ 25 MG TAB.ER.24H PO SCH (09:07)
[2021-08-14] MEDS: RisperiDAL 3 MG TABLET PO SCH (09:07)
[2021-08-14] MEDS: Bumetanide 1 MG TABLET PO SCH ×2 (09:07→17:58)
[2021-08-14] MEDS: Nystatin POWDER 30 GM BOTTLE TP SCH ×3 (09:08→20:31)
[2021-08-15 02:31] LABS: Hemoglobin 9.7 g/dL (11.5-15.4); Mean Corpuscular Hemoglobin 26.5 pg (28.0-33.3); Red Blood Count 3.66 M/mcL (3.82-4.97)
[2021-08-15 02:33] LABS: Basophils # 0.1 K/mcL (0.0-0.2); Basophils % 0.8 %; Eosinophils # 0.4 K/mcL (0.0-0.6); Hematocrit 30.4 % (35.3-44.9); Immature Granulocytes % 0.3 % (0-4); Immature Platelets 4.4 % (1.1-6.1); Lymphocytes # 1.4 K/mcL (0.6-4.6); Lymphocytes % 22.9 %; Mean Corpuscular HGB Conc 31.9 g/dL (31.6-35.5); Mean Corpuscular Volume 83.1 fL (83.0-100.0); Mean Platelet Volume 9.5 fL (9.4-12.4); Monocytes # 0.8 K/mcL (0.0-1.3); Monocytes % 12.5 %; Platelet Count 205 K/mcL (140-400); Red Cell Distribution Width 33.7 % (11.5-14.5); Segmented Neutrophils % 57.5 %; White Blood Count 6.2 K/mcL (4.3-11.1)
[2021-08-15 02:38] LABS: Neutrophils # 3.6 K/mcL (1.6-8.9)
[2021-08-15 02:50] LABS: Anisocytosis 1+ (Not Present); Platelet Estimate Normal (Normal)
[2021-08-15 02:55] LABS: BUN/Creatinine Ratio 44 (6-26); Blood Urea Nitrogen 21 mg/dL (8-23); Calcium 8.5 mg/dL (8.6-10.3); Carbon Dioxide 32 mEq/L (23-29); Chloride 102 mEq/L (98-107); Glucose 83 mg/dL (70-105); Osmolality,Calculated 284 (280-300); Potassium 3.4 mEq/L (3.5-5.1); Sodium 136 mEq/L (136-145); eGFR For African Americans > 60 (> 60); eGFR For Non-African Americans > 60 (> 60)
[2021-08-15] MEDS: Metoprolol XL (24 HR) Succ 25 MG TAB.ER.24H PO SCH (08:00)
[2021-08-15] MEDS: Aspirin 81 MG TAB.CHEW PO SCH (08:00)
[2021-08-15] MEDS: Bumetanide 1 MG TABLET PO SCH ×2 (08:00→16:31)
[2021-08-15] MEDS: Nystatin POWDER 30 GM BOTTLE TP SCH ×3 (08:00→20:40)
[2021-08-15] MEDS: RisperiDAL 3 MG TABLET PO SCH (08:00)
[2021-08-15] MEDS ORDERED: Potassium Chloride Elixir 20 MEQ/15 ML UDC PO ONE (08:05)
[2021-08-16] MEDS: Nystatin POWDER 30 GM BOTTLE TP SCH ×3 (07:47→21:27)
[2021-08-16] MEDS: Bumetanide 1 MG TABLET PO SCH ×2 (07:47→16:17)
[2021-08-16] MEDS: Aspirin 81 MG TAB.CHEW PO SCH (07:47)
[2021-08-16] MEDS: RisperiDAL 3 MG TABLET PO SCH (07:47)
[2021-08-16] MEDS: Metoprolol XL (24 HR) Succ 25 MG TAB.ER.24H PO SCH (07:47)
[2021-08-17] MEDS: Aspirin 81 MG TAB.CHEW PO SCH (08:51)
[2021-08-17] MEDS: Nystatin POWDER 30 GM BOTTLE TP SCH ×3 (08:52→22:34)
[2021-08-17] MEDS: Metoprolol XL (24 HR) Succ 25 MG TAB.ER.24H PO SCH (08:52)
[2021-08-17] MEDS: Bumetanide 1 MG TABLET PO SCH ×2 (08:52→15:37)
[2021-08-17] MEDS: RisperiDAL 3 MG TABLET PO SCH (08:52)
[2021-08-17] MEDS: Nystatin Cream 15 GM TUBE TP PRN (15:37)
[2021-08-18] MEDS: Nystatin POWDER 30 GM BOTTLE TP SCH ×3 (09:12→20:35)
[2021-08-18] MEDS: Metoprolol XL (24 HR) Succ 25 MG TAB.ER.24H PO SCH (09:12)
[2021-08-18] MEDS: Aspirin 81 MG TAB.CHEW PO SCH (09:12)
[2021-08-18] MEDS: Bumetanide 1 MG TABLET PO SCH ×2 (09:12→17:30)
[2021-08-18] MEDS: RisperiDAL 3 MG TABLET PO SCH (09:12)
[2021-08-19] MEDS: Bumetanide 1 MG TABLET PO SCH ×2 (07:38→18:20)
[2021-08-19] MEDS: Nystatin POWDER 30 GM BOTTLE TP SCH ×3 (07:38→21:42)
[2021-08-19] MEDS: RisperiDAL 3 MG TABLET PO SCH (07:38)
[2021-08-19] MEDS: Metoprolol XL (24 HR) Succ 25 MG TAB.ER.24H PO SCH (07:38)
[2021-08-19] MEDS: Aspirin 81 MG TAB.CHEW PO SCH (07:38)
[2021-08-20] MEDS: Metoprolol XL (24 HR) Succ 25 MG TAB.ER.24H PO SCH (07:46)
[2021-08-20] MEDS: Aspirin 81 MG TAB.CHEW PO SCH (07:46)
[2021-08-20] MEDS: RisperiDAL 3 MG TABLET PO SCH (07:46)
[2021-08-20] MEDS: Bumetanide 1 MG TABLET PO SCH ×2 (07:46→16:42)
[2021-08-20] MEDS: Nystatin POWDER 30 GM BOTTLE TP SCH ×3 (07:47→22:24)
[2021-08-21] MEDS: Bumetanide 1 MG TABLET PO SCH ×2 (07:45→16:19)
[2021-08-21] MEDS: Nystatin POWDER 30 GM BOTTLE TP SCH ×3 (07:45→21:00)
[2021-08-21] MEDS: Metoprolol XL (24 HR) Succ 25 MG TAB.ER.24H PO SCH (07:45)
[2021-08-21] MEDS: Aspirin 81 MG TAB.CHEW PO SCH (07:45)
[2021-08-21] MEDS: RisperiDAL 3 MG TABLET PO SCH (07:45)
[2021-08-22] MEDS: Nystatin POWDER 30 GM BOTTLE TP SCH ×3 (07:16→20:24)
[2021-08-22] MEDS: RisperiDAL 3 MG TABLET PO SCH (07:16)
[2021-08-22] MEDS: Bumetanide 1 MG TABLET PO SCH ×2 (07:16→15:47)
[2021-08-22] MEDS: Aspirin 81 MG TAB.CHEW PO SCH (07:16)
[2021-08-22] MEDS: Metoprolol XL (24 HR) Succ 25 MG TAB.ER.24H PO SCH (07:16)
[2021-08-22 10:55] LABS: Adenovirus Not Detected (Not Detect); Bordetella Pertussis Not Detected (Not Detect); Chlamydophila pneumoniae Not Detected (Not Detect); Coronavirus 229E Not Detected (Not Detect); Coronavirus HKU1 Not Detected (Not Detect); Coronavirus NL63 Not Detected (Not Detect); Coronavirus OC43 Not Detected (Not Detect); Human Metapneumovirus Not Detected (Not Detect); Human Rhinovirus/Enterovirus Not Detected (Not Detect); Influenza A Subtype 2009 H1 Not Detected (Not Detect); Influenza B Not Detected (Not Detect); Mycoplasma pneumoniae Not Detected (Not Detect); Parainfluenza Virus 1 Not Detected (Not Detect); Parainfluenza Virus 2 Not Detected (Not Detect); Parainfluenza Virus 3 Not Detected (Not Detect); Parainfluenza Virus 4 Not Detected (Not Detect); Respiratory Syncytial Virus Not Detected (Not Detect); SARS-CoV-2 Not Detected (Not Detect)
[2021-08-22 12:22] LABS: Hematocrit 34.9 % (35.3-44.9); Mean Corpuscular HGB Conc 31.5 g/dL (31.6-35.5); Mean Corpuscular Hemoglobin 26.8 pg (28.0-33.3); Mean Corpuscular Volume 84.9 fL (83.0-100.0); Mean Platelet Volume 9.8 fL (9.4-12.4); Platelet Count 202 K/mcL (140-400); Red Blood Count 4.11 M/mcL (3.82-4.97); White Blood Count 11.4 K/mcL (4.3-11.1)
[2021-08-22 12:41] LABS: BUN/Creatinine Ratio 40 (6-26); Blood Urea Nitrogen 22 mg/dL (8-23); Calcium 8.9 mg/dL (8.6-10.3); Carbon Dioxide 31 mEq/L (23-29); Chloride 100 mEq/L (98-107); Glucose 131 mg/dL (70-105); Osmolality,Calculated 291 (280-300); Potassium 3.3 mEq/L (3.5-5.1); Sodium 138 mEq/L (136-145); eGFR For African Americans > 60 (> 60); eGFR For Non-African Americans > 60 (> 60)
[2021-08-22 15:38] LABS: Bilirubin,Urine Negative (Negative); Blood,Urine Negative (Negative); Clarity,Urine Clear (Clear); Color,Urine Light-Yellow (Yellow); Glucose,Urine (UA) Normal (Normal); Hyaline Casts,Urine Many per lpf (None Seen); Ketones,Urine Negative (Negative); Leukocyte Esterase,Urine Large (Negative); Mucus,Urine Few per lpf (None-Few); Nitrite,Urine Negative (Negative); PH,Urine 6.5 pH Units (5.0-8.0); Protein,Urine 30 mg/dL (Neg-Trace); RBC,Urine 0-3 per hpf (0-3); Renal Epithelial Cells,Urine Few per hpf (None-Few); Specific Gravity,Urine 1.013 (1.010-1.025); Squamous Epithelial Cell,Urine Few per hpf (None-Few); Transitional Epi Cells,Urine Few per hpf (None-Few); Urobilinogen,Urine Normal (Normal); WBC,Urine 30-50 per hpf (0-3)
[2021-08-22] MEDS ORDERED: Potassium Chloride Elixir 20 MEQ/15 ML UDC PO ONE (16:29)
[2021-08-22] MEDS ORDERED: cefTRIAXone 1,000 MG in 0.9 % Sodium Chloride Mini Bag 100 ML IVP SCH (17:00)
[2021-08-22] MEDS: Piperacillin/Tazobactam 3.375 GM in 0.9 % Sodium Chloride Mini Bag 100 ML IVPB SCH ×2 (17:16→23:42)
[2021-08-23] MEDS ORDERED: Piperacillin/Tazobactam 3.375 GM in 0.9 % Sodium Chloride Mini Bag 100 ML IVPB SCH
[2021-08-23 06:27] LABS: Hematocrit 30.4 % (35.3-44.9); Hemoglobin 9.6 g/dL (11.5-15.4); Mean Corpuscular HGB Conc 31.6 g/dL (31.6-35.5); Mean Corpuscular Volume 85.6 fL (83.0-100.0); Mean Platelet Volume 9.8 fL (9.4-12.4); Platelet Count 170 K/mcL (140-400); Red Blood Count 3.55 M/mcL (3.82-4.97); White Blood Count 8.2 K/mcL (4.3-11.1)
[2021-08-23 06:42] LABS: BUN/Creatinine Ratio 37 (6-26); Blood Urea Nitrogen 20 mg/dL (8-23); Calcium 8.7 mg/dL (8.6-10.3); Carbon Dioxide 29 mEq/L (23-29); Chloride 101 mEq/L (98-107); Glucose 88 mg/dL (70-105); Osmolality,Calculated 284 (280-300); Potassium 3.8 mEq/L (3.5-5.1); Sodium 136 mEq/L (136-145); eGFR For African Americans > 60 (> 60); eGFR For Non-African Americans > 60 (> 60)
[2021-08-23] MEDS: Metoprolol XL (24 HR) Succ 25 MG TAB.ER.24H PO SCH (09:33)
[2021-08-23] MEDS: RisperiDAL 3 MG TABLET PO SCH (09:33)
[2021-08-23] MEDS: Aspirin 81 MG TAB.CHEW PO SCH (09:33)
[2021-08-23] MEDS: Piperacillin/Tazobactam 3.375 GM in 0.9 % Sodium Chloride Mini Bag 100 ML IVPB SCH ×3 (09:33→23:35)
[2021-08-23] MEDS: Bumetanide 1 MG TABLET PO SCH ×2 (09:33→17:04)
[2021-08-23] MEDS: Nystatin POWDER 30 GM BOTTLE TP SCH ×3 (09:34→19:24)
[2021-08-23] MEDS: Nystatin Cream 15 GM TUBE TP PRN (14:34)
[2021-08-24 01:54] LABS: BUN/Creatinine Ratio 33 (6-26); Blood Urea Nitrogen 22 mg/dL (8-23); Calcium 8.2 mg/dL (8.6-10.3); Carbon Dioxide 32 mEq/L (23-29); Chloride 100 mEq/L (98-107); Glucose 92 mg/dL (70-105); Osmolality,Calculated 283 (280-300); Potassium 2.9 mEq/L (3.5-5.1); Sodium 135 mEq/L (136-145); eGFR For African Americans > 60 (> 60); eGFR For Non-African Americans > 60 (> 60)
[2021-08-24 01:58] LABS: Hematocrit 28.9 % (35.3-44.9); Hemoglobin 9.1 g/dL (11.5-15.4); Mean Corpuscular HGB Conc 31.5 g/dL (31.6-35.5); Mean Corpuscular Hemoglobin 26.5 pg (28.0-33.3); Mean Corpuscular Volume 84.3 fL (83.0-100.0); Mean Platelet Volume 9.5 fL (9.4-12.4); Platelet Count 212 K/mcL (140-400); Red Blood Count 3.43 M/mcL (3.82-4.97); White Blood Count 7.4 K/mcL (4.3-11.1)
[2021-08-24] MEDS: Bumetanide 1 MG TABLET PO SCH ×2 (08:13→16:35)
[2021-08-24] MEDS: Aspirin 81 MG TAB.CHEW PO SCH (08:13)
[2021-08-24] MEDS: RisperiDAL 3 MG TABLET PO SCH (08:13)
[2021-08-24] MEDS: Metoprolol XL (24 HR) Succ 25 MG TAB.ER.24H PO SCH (08:14)
[2021-08-24] MEDS: Piperacillin/Tazobactam 3.375 GM in 0.9 % Sodium Chloride Mini Bag 100 ML IVPB SCH (08:15)
[2021-08-24] MEDS: Nystatin POWDER 30 GM BOTTLE TP SCH ×3 (08:16→19:31)
[2021-08-25] MEDS: Metoprolol XL (24 HR) Succ 25 MG TAB.ER.24H PO SCH (08:03)
[2021-08-25] MEDS: Aspirin 81 MG TAB.CHEW PO SCH (08:03)
[2021-08-25] MEDS: Bumetanide 1 MG TABLET PO SCH ×2 (08:04→17:29)
[2021-08-25] MEDS: RisperiDAL 3 MG TABLET PO SCH (08:04)
[2021-08-25] MEDS: Nystatin POWDER 30 GM BOTTLE TP SCH ×3 (08:07→19:26)
[2021-08-25 08:44] LABS: Hematocrit 29.2 % (35.3-44.9); Hemoglobin 9.5 g/dL (11.5-15.4); Mean Corpuscular HGB Conc 32.5 g/dL (31.6-35.5); Mean Corpuscular Hemoglobin 27.7 pg (28.0-33.3); Mean Corpuscular Volume 85.1 fL (83.0-100.0); Mean Platelet Volume 9.7 fL (9.4-12.4); Platelet Count 217 K/mcL (140-400); Red Blood Count 3.43 M/mcL (3.82-4.97); White Blood Count 6.3 K/mcL (4.3-11.1)
[2021-08-25 09:32] LABS: BUN/Creatinine Ratio 34 (6-26); Blood Urea Nitrogen 21 mg/dL (8-23); Calcium 8.5 mg/dL (8.6-10.3); Carbon Dioxide 30 mEq/L (23-29); Chloride 104 mEq/L (98-107); Glucose 89 mg/dL (70-105); Osmolality,Calculated 288 (280-300); Potassium 3.9 mEq/L (3.5-5.1); Sodium 138 mEq/L (136-145); eGFR For African Americans > 60 (> 60); eGFR For Non-African Americans > 60 (> 60)
[2021-08-25] MEDS ORDERED: Isovue-370 500 ML BOTTLE IVP ONE (09:55)
[2021-08-25] MEDS ORDERED: Bumetanide 1 MG/4 ML VIAL IVP ONE (12:50)
[2021-08-25] MEDS: *HR* Heparin 5,000 UNIT/ML VIAL SQ SCH (17:29)
[2021-08-26 01:27] LABS: Hematocrit 28.6 % (35.3-44.9); Hemoglobin 9.1 g/dL (11.5-15.4); Mean Corpuscular HGB Conc 31.8 g/dL (31.6-35.5); Mean Corpuscular Hemoglobin 26.7 pg (28.0-33.3); Mean Corpuscular Volume 83.9 fL (83.0-100.0); Mean Platelet Volume 9.1 fL (9.4-12.4); Platelet Count 206 K/mcL (140-400); Red Blood Count 3.41 M/mcL (3.82-4.97); White Blood Count 5.9 K/mcL (4.3-11.1)
[2021-08-26 01:44] LABS: BUN/Creatinine Ratio 36 (6-26); Blood Urea Nitrogen 25 mg/dL (8-23); Calcium 8.5 mg/dL (8.6-10.3); Carbon Dioxide 30 mEq/L (23-29); Chloride 102 mEq/L (98-107); Glucose 99 mg/dL (70-105); Osmolality,Calculated 292 (280-300); Potassium 3.4 mEq/L (3.5-5.1); Sodium 139 mEq/L (136-145); eGFR For African Americans > 60 (> 60); eGFR For Non-African Americans > 60 (> 60)
[2021-08-26] MEDS: *HR* Heparin 5,000 UNIT/ML VIAL SQ SCH ×2 (05:49→16:39)
[2021-08-26] MEDS: Metoprolol XL (24 HR) Succ 25 MG TAB.ER.24H PO SCH (07:27)
[2021-08-26] MEDS: Aspirin 81 MG TAB.CHEW PO SCH (07:27)
[2021-08-26] MEDS: RisperiDAL 3 MG TABLET PO SCH (07:27)
[2021-08-26] MEDS: Bumetanide 1 MG TABLET PO SCH ×2 (07:27→16:39)
[2021-08-26] MEDS: Nystatin POWDER 30 GM BOTTLE TP SCH ×3 (07:28→20:35)
[2021-08-27 03:06] LABS: Hematocrit 31.4 % (35.3-44.9); Mean Corpuscular HGB Conc 31.8 g/dL (31.6-35.5); Mean Corpuscular Hemoglobin 27.4 pg (28.0-33.3); Mean Platelet Volume 9.7 fL (9.4-12.4); Platelet Count 196 K/mcL (140-400); Red Blood Count 3.65 M/mcL (3.82-4.97); White Blood Count 7.3 K/mcL (4.3-11.1)
[2021-08-27 03:25] LABS: BUN/Creatinine Ratio 40 (6-26); Blood Urea Nitrogen 24 mg/dL (8-23); Calcium 8.8 mg/dL (8.6-10.3); Carbon Dioxide 27 mEq/L (23-29); Chloride 102 mEq/L (98-107); Glucose 98 mg/dL (70-105); Magnesium 1.8 mg/dL (1.6-2.6); Osmolality,Calculated 284 (280-300); Phosphorous 3.4 mg/dL (2.7-4.5); Potassium 3.9 mEq/L (3.5-5.1); Sodium 135 mEq/L (136-145); eGFR For African Americans > 60 (> 60); eGFR For Non-African Americans > 60 (> 60)
[2021-08-27] MEDS: *HR* Heparin 5,000 UNIT/ML VIAL SQ SCH ×2 (05:17→17:16)
[2021-08-27] MEDS: Bumetanide 1 MG TABLET PO SCH ×2 (07:10→17:16)
[2021-08-27] MEDS: Metoprolol XL (24 HR) Succ 25 MG TAB.ER.24H PO SCH (07:10)
[2021-08-27] MEDS: RisperiDAL 3 MG TABLET PO SCH (07:10)
[2021-08-27] MEDS: Aspirin 81 MG TAB.CHEW PO SCH (07:10)
[2021-08-27] MEDS: Nystatin POWDER 30 GM BOTTLE TP SCH ×3 (07:11→21:06)
[2021-08-28] MEDS: *HR* Heparin 5,000 UNIT/ML VIAL SQ SCH ×3 (05:16→16:41)
[2021-08-28] MEDS: Metoprolol XL (24 HR) Succ 25 MG TAB.ER.24H PO SCH (08:43)
[2021-08-28] MEDS: Aspirin 81 MG TAB.CHEW PO SCH (08:43)
[2021-08-28] MEDS: RisperiDAL 3 MG TABLET PO SCH (08:43)
[2021-08-28] MEDS: Bumetanide 1 MG TABLET PO SCH ×2 (08:43→16:39)
[2021-08-28] MEDS: Nystatin POWDER 30 GM BOTTLE TP SCH ×3 (08:44→19:28)
[2021-08-29] MEDS: *HR* Heparin 5,000 UNIT/ML VIAL SQ SCH ×2 (05:15→16:40)
[2021-08-29] MEDS: RisperiDAL 3 MG TABLET PO SCH (08:49)
[2021-08-29] MEDS: Bumetanide 1 MG TABLET PO SCH ×2 (08:49→16:40)
[2021-08-29] MEDS: Aspirin 81 MG TAB.CHEW PO SCH (08:49)
[2021-08-29] MEDS: Metoprolol XL (24 HR) Succ 25 MG TAB.ER.24H PO SCH (08:49)
[2021-08-29] MEDS: Nystatin POWDER 30 GM BOTTLE TP SCH ×3 (08:50→19:23)
[2021-08-30] MEDS: *HR* Heparin 5,000 UNIT/ML VIAL SQ SCH ×2 (05:13→17:11)
[2021-08-30] MEDS: Aspirin 81 MG TAB.CHEW PO SCH (07:44)
[2021-08-30] MEDS: Metoprolol XL (24 HR) Succ 25 MG TAB.ER.24H PO SCH (07:44)
[2021-08-30] MEDS: RisperiDAL 3 MG TABLET PO SCH (07:44)
[2021-08-30] MEDS: Bumetanide 1 MG TABLET PO SCH ×2 (07:44→17:11)
[2021-08-30] MEDS: Nystatin POWDER 30 GM BOTTLE TP SCH ×3 (07:45→21:39)
[2021-08-31] MEDS: *HR* Heparin 5,000 UNIT/ML VIAL SQ SCH ×2 (05:17→17:09)
[2021-08-31] MEDS: Bumetanide 1 MG TABLET PO SCH ×2 (07:33→17:09)
[2021-08-31] MEDS: RisperiDAL 3 MG TABLET PO SCH (07:33)
[2021-08-31] MEDS: Nystatin POWDER 30 GM BOTTLE TP SCH ×3 (07:34→20:55)
[2021-08-31] MEDS: Metoprolol XL (24 HR) Succ 25 MG TAB.ER.24H PO SCH (07:34)
[2021-08-31] MEDS: Aspirin 81 MG TAB.CHEW PO SCH (07:34)
[2021-09-01] MEDS: *HR* Heparin 5,000 UNIT/ML VIAL SQ SCH ×2 (05:14→16:33)
[2021-09-01] MEDS: Metoprolol XL (24 HR) Succ 25 MG TAB.ER.24H PO SCH (07:31)
[2021-09-01] MEDS: RisperiDAL 3 MG TABLET PO SCH (07:31)
[2021-09-01] MEDS: Bumetanide 1 MG TABLET PO SCH ×2 (07:31→16:33)
[2021-09-01] MEDS: Nystatin POWDER 30 GM BOTTLE TP SCH ×3 (07:31→21:34)
[2021-09-01] MEDS: Aspirin 81 MG TAB.CHEW PO SCH (07:31)
[2021-09-02] MEDS: *HR* Heparin 5,000 UNIT/ML VIAL SQ SCH ×2 (05:32→16:59)
[2021-09-02] MEDS: Nystatin POWDER 30 GM BOTTLE TP SCH ×3 (08:43→21:27)
[2021-09-02] MEDS: Metoprolol XL (24 HR) Succ 25 MG TAB.ER.24H PO SCH (08:43)
[2021-09-02] MEDS: Aspirin 81 MG TAB.CHEW PO SCH (08:43)
[2021-09-02] MEDS: Bumetanide 1 MG TABLET PO SCH ×2 (08:43→16:59)
[2021-09-02] MEDS: RisperiDAL 3 MG TABLET PO SCH (08:43)
[2021-09-02] MEDS: Nystatin Cream 15 GM TUBE TP PRN (08:44)
[2021-09-03] MEDS: *HR* Heparin 5,000 UNIT/ML VIAL SQ SCH ×2 (05:09→18:23)
[2021-09-03] MEDS: Aspirin 81 MG TAB.CHEW PO SCH (08:04)
[2021-09-03] MEDS: Nystatin POWDER 30 GM BOTTLE TP SCH ×3 (08:04→20:08)
[2021-09-03] MEDS: Bumetanide 1 MG TABLET PO SCH ×2 (08:04→18:23)
[2021-09-03] MEDS: RisperiDAL 3 MG TABLET PO SCH (08:04)
[2021-09-03] MEDS: Metoprolol XL (24 HR) Succ 25 MG TAB.ER.24H PO SCH (08:04)
[2021-09-04] MEDS: *HR* Heparin 5,000 UNIT/ML VIAL SQ SCH ×2 (08:29→17:52)
[2021-09-04] MEDS: RisperiDAL 3 MG TABLET PO SCH (08:29)
[2021-09-04] MEDS: Bumetanide 1 MG TABLET PO SCH ×2 (08:29→17:52)
[2021-09-04] MEDS: Metoprolol XL (24 HR) Succ 25 MG TAB.ER.24H PO SCH (08:30)
[2021-09-04] MEDS: Aspirin 81 MG TAB.CHEW PO SCH (08:30)
[2021-09-04] MEDS: Nystatin POWDER 30 GM BOTTLE TP SCH ×3 (08:30→20:53)
[2021-09-05 01:41] LABS: Hemoglobin 9.5 g/dL (11.5-15.4)
[2021-09-05 01:43] LABS: Hematocrit 29.6 % (35.3-44.9); Immature Platelets 1.9 % (1.1-6.1); Mean Corpuscular HGB Conc 32.1 g/dL (31.6-35.5); Mean Corpuscular Hemoglobin 27.9 pg (28.0-33.3); Mean Corpuscular Volume 86.8 fL (83.0-100.0); Mean Platelet Volume 9.9 fL (9.4-12.4); Platelet Count 238 K/mcL (140-400); Red Blood Count 3.41 M/mcL (3.82-4.97); White Blood Count 10.5 K/mcL (4.3-11.1)
[2021-09-05 01:59] LABS: BUN/Creatinine Ratio 44 (6-26); Blood Urea Nitrogen 21 mg/dL (8-23); Calcium 8.8 mg/dL (8.6-10.3); Carbon Dioxide 30 mEq/L (23-29); Chloride 101 mEq/L (98-107); Glucose 114 mg/dL (70-105); Magnesium 1.7 mg/dL (1.6-2.6); Osmolality,Calculated 288 (280-300); Potassium 3.2 mEq/L (3.5-5.1); Sodium 137 mEq/L (136-145); eGFR For African Americans > 60 (> 60); eGFR For Non-African Americans > 60 (> 60)
[2021-09-05] MEDS: *HR* Heparin 5,000 UNIT/ML VIAL SQ SCH ×2 (05:41→16:42)
[2021-09-05] MEDS: Aspirin 81 MG TAB.CHEW PO SCH (07:47)
[2021-09-05] MEDS: Bumetanide 1 MG TABLET PO SCH ×2 (07:47→16:42)
[2021-09-05] MEDS: RisperiDAL 3 MG TABLET PO SCH (07:47)
[2021-09-05] MEDS: Metoprolol XL (24 HR) Succ 25 MG TAB.ER.24H PO SCH (07:47)
[2021-09-05] MEDS: Nystatin POWDER 30 GM BOTTLE TP SCH ×3 (07:48→20:35)
[2021-09-05] MEDS ORDERED: Magnesium Sulfate 1 GM/102 ML PIGGYBACK IVPB ONE (07:49)
[2021-09-05] MEDS: Magnesium Oxide 400 MG TABLET PO SCH (10:48)
[2021-09-06] MEDS: *HR* Heparin 5,000 UNIT/ML VIAL SQ SCH ×2 (05:54→15:58)
[2021-09-06] MEDS: Bumetanide 1 MG TABLET PO SCH ×2 (07:11→15:58)
[2021-09-06] MEDS: Magnesium Oxide 400 MG TABLET PO SCH (07:11)
[2021-09-06] MEDS: Nystatin POWDER 30 GM BOTTLE TP SCH ×3 (07:11→19:21)
[2021-09-06] MEDS: Aspirin 81 MG TAB.CHEW PO SCH (07:11)
[2021-09-06] MEDS: Metoprolol XL (24 HR) Succ 25 MG TAB.ER.24H PO SCH (07:11)
[2021-09-06] MEDS: RisperiDAL 3 MG TABLET PO SCH (07:11)
[2021-09-07] MEDS: *HR* Heparin 5,000 UNIT/ML VIAL SQ SCH ×2 (05:09→16:50)
[2021-09-07] MEDS: Metoprolol XL (24 HR) Succ 25 MG TAB.ER.24H PO SCH (07:30)
[2021-09-07] MEDS: Aspirin 81 MG TAB.CHEW PO SCH (07:30)
[2021-09-07] MEDS: Magnesium Oxide 400 MG TABLET PO SCH (07:30)
[2021-09-07] MEDS: RisperiDAL 3 MG TABLET PO SCH (07:30)
[2021-09-07] MEDS: Bumetanide 1 MG TABLET PO SCH ×2 (07:30→16:50)
[2021-09-07] MEDS: Nystatin POWDER 30 GM BOTTLE TP SCH ×3 (07:31→21:12)
[2021-09-08] MEDS: *HR* Heparin 5,000 UNIT/ML VIAL SQ SCH ×2 (07:01→16:52)
[2021-09-08] MEDS: Metoprolol XL (24 HR) Succ 25 MG TAB.ER.24H PO SCH (07:37)
[2021-09-08] MEDS: RisperiDAL 3 MG TABLET PO SCH (07:37)
[2021-09-08] MEDS: Bumetanide 1 MG TABLET PO SCH ×2 (07:37→16:52)
[2021-09-08] MEDS: Aspirin 81 MG TAB.CHEW PO SCH (07:38)
[2021-09-08] MEDS: Nystatin POWDER 30 GM BOTTLE TP SCH ×3 (07:38→22:50)
[2021-09-08] MEDS: Magnesium Oxide 400 MG TABLET PO SCH (07:38)
[2021-09-09] MEDS: *HR* Heparin 5,000 UNIT/ML VIAL SQ SCH ×2 (05:11→16:19)
[2021-09-09] MEDS: Nystatin POWDER 30 GM BOTTLE TP SCH ×3 (07:38→21:02)
[2021-09-09] MEDS: RisperiDAL 3 MG TABLET PO SCH (07:38)
[2021-09-09] MEDS: Magnesium Oxide 400 MG TABLET PO SCH (07:38)
[2021-09-09] MEDS: Aspirin 81 MG TAB.CHEW PO SCH (07:38)
[2021-09-09] MEDS: Metoprolol XL (24 HR) Succ 25 MG TAB.ER.24H PO SCH (07:38)
[2021-09-09] MEDS: Bumetanide 1 MG TABLET PO SCH ×2 (07:38→16:19)
[2021-09-10] MEDS: *HR* Heparin 5,000 UNIT/ML VIAL SQ SCH ×2 (06:01→16:30)
[2021-09-10] MEDS: Bumetanide 1 MG TABLET PO SCH ×2 (07:21→16:30)
[2021-09-10] MEDS: Aspirin 81 MG TAB.CHEW PO SCH (07:21)
[2021-09-10] MEDS: Metoprolol XL (24 HR) Succ 25 MG TAB.ER.24H PO SCH (07:21)
[2021-09-10] MEDS: RisperiDAL 3 MG TABLET PO SCH (07:21)
[2021-09-10] MEDS: Magnesium Oxide 400 MG TABLET PO SCH (07:21)
[2021-09-10] MEDS: Nystatin POWDER 30 GM BOTTLE TP SCH (07:22)
[2021-09-11] MEDS: Metoprolol XL (24 HR) Succ 25 MG TAB.ER.24H PO SCH (07:15)
[2021-09-11] MEDS: *HR* Heparin 5,000 UNIT/ML VIAL SQ SCH ×2 (07:15→17:50)
[2021-09-11] MEDS: Bumetanide 1 MG TABLET PO SCH ×2 (07:16→17:50)
[2021-09-11] MEDS: Aspirin 81 MG TAB.CHEW PO SCH (07:16)
[2021-09-11] MEDS: Magnesium Oxide 400 MG TABLET PO SCH (07:16)
[2021-09-11] MEDS: RisperiDAL 3 MG TABLET PO SCH (07:16)
[2021-09-12 01:33] LABS: Hematocrit 29.7 % (35.3-44.9); Hemoglobin 9.4 g/dL (11.5-15.4); Immature Platelets 3.1 % (1.1-6.1); Mean Corpuscular HGB Conc 31.6 g/dL (31.6-35.5); Mean Corpuscular Hemoglobin 28.8 pg (28.0-33.3); Mean Corpuscular Volume 91.1 fL (83.0-100.0); Platelet Count 210 K/mcL (140-400); Red Blood Count 3.26 M/mcL (3.82-4.97); White Blood Count 4.8 K/mcL (4.3-11.1)
[2021-09-12 01:49] LABS: BUN/Creatinine Ratio 47 (6-26); Blood Urea Nitrogen 20 mg/dL (8-23); Carbon Dioxide 29 mEq/L (23-29); Chloride 101 mEq/L (98-107); Glucose 91 mg/dL (70-105); Magnesium 1.8 mg/dL (1.6-2.6); Osmolality,Calculated 292 (280-300); Potassium 3.6 mEq/L (3.5-5.1); Sodium 140 mEq/L (136-145); eGFR For African Americans > 60 (> 60); eGFR For Non-African Americans > 60 (> 60)
[2021-09-12] MEDS: *HR* Heparin 5,000 UNIT/ML VIAL SQ SCH ×2 (05:40→17:13)
[2021-09-12] MEDS: Metoprolol XL (24 HR) Succ 25 MG TAB.ER.24H PO SCH (07:21)
[2021-09-12] MEDS: Aspirin 81 MG TAB.CHEW PO SCH (07:21)
[2021-09-12] MEDS: Magnesium Oxide 400 MG TABLET PO SCH (07:21)
[2021-09-12] MEDS: RisperiDAL 3 MG TABLET PO SCH (07:21)
[2021-09-12] MEDS: Bumetanide 1 MG TABLET PO SCH ×2 (07:21→17:13)
[2021-09-13] MEDS: *HR* Heparin 5,000 UNIT/ML VIAL SQ SCH ×2 (05:22→16:47)
[2021-09-13] MEDS: RisperiDAL 3 MG TABLET PO SCH (07:32)
[2021-09-13] MEDS: Magnesium Oxide 400 MG TABLET PO SCH (07:32)
[2021-09-13] MEDS: Aspirin 81 MG TAB.CHEW PO SCH (07:32)
[2021-09-13] MEDS: Bumetanide 1 MG TABLET PO SCH ×2 (07:32→16:47)
[2021-09-13] MEDS: Metoprolol XL (24 HR) Succ 25 MG TAB.ER.24H PO SCH (07:32)
[2021-09-14] MEDS: *HR* Heparin 5,000 UNIT/ML VIAL SQ SCH ×2 (07:12→18:34)
[2021-09-14] MEDS: Metoprolol XL (24 HR) Succ 25 MG TAB.ER.24H PO SCH (09:40)
[2021-09-14] MEDS: Magnesium Oxide 400 MG TABLET PO SCH (09:41)
[2021-09-14] MEDS: Aspirin 81 MG TAB.CHEW PO SCH (09:41)
[2021-09-14] MEDS: RisperiDAL 3 MG TABLET PO SCH (09:41)
[2021-09-14] MEDS: Bumetanide 1 MG TABLET PO SCH ×2 (09:41→18:34)
[2021-09-15] MEDS: *HR* Heparin 5,000 UNIT/ML VIAL SQ SCH ×2 (05:19→16:33)
[2021-09-15] MEDS: Magnesium Oxide 400 MG TABLET PO SCH (08:12)
[2021-09-15] MEDS: Metoprolol XL (24 HR) Succ 25 MG TAB.ER.24H PO SCH (08:12)
[2021-09-15] MEDS: RisperiDAL 3 MG TABLET PO SCH (08:13)
[2021-09-15] MEDS: Aspirin 81 MG TAB.CHEW PO SCH (08:13)
[2021-09-15] MEDS: Bumetanide 1 MG TABLET PO SCH ×2 (08:13→16:33)
[2021-09-16] MEDS: *HR* Heparin 5,000 UNIT/ML VIAL SQ SCH ×2 (07:05→17:06)
[2021-09-16] MEDS: RisperiDAL 3 MG TABLET PO SCH (07:43)
[2021-09-16] MEDS: Metoprolol XL (24 HR) Succ 25 MG TAB.ER.24H PO SCH (07:43)
[2021-09-16] MEDS: Aspirin 81 MG TAB.CHEW PO SCH (07:43)
[2021-09-16] MEDS: Magnesium Oxide 400 MG TABLET PO SCH (07:43)
[2021-09-16] MEDS: Bumetanide 1 MG TABLET PO SCH ×2 (07:44→17:06)
[2021-09-16] MEDS ORDERED: D5% in Water 1,000 ML IVC PRN (09:09)
[2021-09-17] MEDS: *HR* Heparin 5,000 UNIT/ML VIAL SQ SCH ×3 (05:13→15:48)
[2021-09-17] MEDS: Metoprolol XL (24 HR) Succ 25 MG TAB.ER.24H PO SCH (07:22)
[2021-09-17] MEDS: RisperiDAL 3 MG TABLET PO SCH (07:22)
[2021-09-17] MEDS: Bumetanide 1 MG TABLET PO SCH ×2 (07:22→15:48)
[2021-09-17] MEDS: Magnesium Oxide 400 MG TABLET PO SCH (07:22)
[2021-09-17] MEDS: Aspirin 81 MG TAB.CHEW PO SCH (07:22)
[2021-09-18] MEDS: *HR* Heparin 5,000 UNIT/ML VIAL SQ SCH ×2 (05:48→14:56)
[2021-09-18] MEDS: Bumetanide 1 MG TABLET PO SCH ×2 (07:13→15:11)
[2021-09-18] MEDS: Magnesium Oxide 400 MG TABLET PO SCH (07:13)
[2021-09-18] MEDS: RisperiDAL 3 MG TABLET PO SCH (07:13)
[2021-09-18] MEDS: Aspirin 81 MG TAB.CHEW PO SCH (07:13)
[2021-09-18] MEDS: Metoprolol XL (24 HR) Succ 25 MG TAB.ER.24H PO SCH (07:14)
[2021-09-19] MEDS: *HR* Heparin 5,000 UNIT/ML VIAL SQ SCH ×2 (05:27→19:14)
[2021-09-19] MEDS: Magnesium Oxide 400 MG TABLET PO SCH (08:03)
[2021-09-19] MEDS: RisperiDAL 3 MG TABLET PO SCH (08:03)
[2021-09-19] MEDS: Metoprolol XL (24 HR) Succ 25 MG TAB.ER.24H PO SCH (08:04)
[2021-09-19] MEDS: Bumetanide 1 MG TABLET PO SCH ×2 (08:04→19:14)
[2021-09-19] MEDS: Aspirin 81 MG TAB.CHEW PO SCH (08:04)
[2021-09-20] MEDS: *HR* Heparin 5,000 UNIT/ML VIAL SQ SCH ×2 (07:09→19:01)
[2021-09-20] MEDS: Magnesium Oxide 400 MG TABLET PO SCH (08:37)
[2021-09-20] MEDS: Aspirin 81 MG TAB.CHEW PO SCH (08:37)
[2021-09-20] MEDS: RisperiDAL 3 MG TABLET PO SCH (08:37)
[2021-09-20] MEDS: Bumetanide 1 MG TABLET PO SCH ×2 (08:37→19:02)
[2021-09-20] MEDS: Metoprolol XL (24 HR) Succ 25 MG TAB.ER.24H PO SCH (08:37)
[2021-09-21] MEDS: *HR* Heparin 5,000 UNIT/ML VIAL SQ SCH ×2 (05:44→14:45)
[2021-09-21] MEDS: Aspirin 81 MG TAB.CHEW PO SCH (07:44)
[2021-09-21] MEDS: RisperiDAL 3 MG TABLET PO SCH (07:44)
[2021-09-21] MEDS: Magnesium Oxide 400 MG TABLET PO SCH (07:44)
[2021-09-21] MEDS: Bumetanide 1 MG TABLET PO SCH ×2 (07:44→15:36)
[2021-09-21] MEDS: Metoprolol XL (24 HR) Succ 25 MG TAB.ER.24H PO SCH (07:44)
[2021-09-22] MEDS: *HR* Heparin 5,000 UNIT/ML VIAL SQ SCH ×2 (05:18→11:49)
[2021-09-22] MEDS: Aspirin 81 MG TAB.CHEW PO SCH (07:41)
[2021-09-22] MEDS: Magnesium Oxide 400 MG TABLET PO SCH (07:41)
[2021-09-22] MEDS: Bumetanide 1 MG TABLET PO SCH ×2 (07:41→16:40)
[2021-09-22] MEDS: RisperiDAL 3 MG TABLET PO SCH (07:41)
[2021-09-22] MEDS: Metoprolol XL (24 HR) Succ 25 MG TAB.ER.24H PO SCH (07:42)
[2021-09-23] MEDS: *HR* Heparin 5,000 UNIT/ML VIAL SQ SCH ×2 (04:57→16:35)
[2021-09-23] MEDS: Magnesium Oxide 400 MG TABLET PO SCH (08:06)
[2021-09-23] MEDS: Bumetanide 1 MG TABLET PO SCH ×2 (08:06→16:35)
[2021-09-23] MEDS: Metoprolol XL (24 HR) Succ 25 MG TAB.ER.24H PO SCH (08:06)
[2021-09-23] MEDS: RisperiDAL 3 MG TABLET PO SCH (08:06)
[2021-09-23] MEDS: Aspirin 81 MG TAB.CHEW PO SCH (11:29)
[2021-09-24] MEDS: *HR* Heparin 5,000 UNIT/ML VIAL SQ SCH ×2 (02:41→17:29)
[2021-09-24] MEDS: RisperiDAL 3 MG TABLET PO SCH (08:49)
[2021-09-24] MEDS: Magnesium Oxide 400 MG TABLET PO SCH (08:49)
[2021-09-24] MEDS: Bumetanide 1 MG TABLET PO SCH ×2 (08:49→17:29)
[2021-09-24] MEDS: Aspirin 81 MG TAB.CHEW PO SCH (08:49)
[2021-09-24] MEDS: Metoprolol XL (24 HR) Succ 25 MG TAB.ER.24H PO SCH (08:49)
[2021-09-24] MEDS: Nystatin POWDER 30 GM BOTTLE TP PRN (08:50)
[2021-09-25] MEDS: *HR* Heparin 5,000 UNIT/ML VIAL SQ SCH ×2 (06:04→15:39)
[2021-09-25] MEDS: RisperiDAL 3 MG TABLET PO SCH (07:23)
[2021-09-25] MEDS: Metoprolol XL (24 HR) Succ 25 MG TAB.ER.24H PO SCH (07:23)
[2021-09-25] MEDS: Bumetanide 1 MG TABLET PO SCH ×2 (07:23→16:05)
[2021-09-25] MEDS: Magnesium Oxide 400 MG TABLET PO SCH (07:23)
[2021-09-25] MEDS: Aspirin 81 MG TAB.CHEW PO SCH (07:23)
[2021-09-26] MEDS: *HR* Heparin 5,000 UNIT/ML VIAL SQ SCH ×2 (05:23→14:36)
[2021-09-26] MEDS: RisperiDAL 3 MG TABLET PO SCH (07:18)
[2021-09-26] MEDS: Metoprolol XL (24 HR) Succ 25 MG TAB.ER.24H PO SCH (07:18)
[2021-09-26] MEDS: Aspirin 81 MG TAB.CHEW PO SCH (07:18)
[2021-09-26] MEDS: Magnesium Oxide 400 MG TABLET PO SCH (07:18)
[2021-09-26] MEDS: Bumetanide 1 MG TABLET PO SCH ×2 (07:18→15:24)
[2021-09-27] MEDS: *HR* Heparin 5,000 UNIT/ML VIAL SQ SCH ×2 (07:04→13:49)
[2021-09-27] MEDS: Magnesium Oxide 400 MG TABLET PO SCH (07:56)
[2021-09-27] MEDS: RisperiDAL 3 MG TABLET PO SCH (07:56)
[2021-09-27] MEDS: Aspirin 81 MG TAB.CHEW PO SCH (07:56)
[2021-09-27] MEDS: Bumetanide 1 MG TABLET PO SCH ×2 (07:56→15:33)
[2021-09-27] MEDS: Metoprolol XL (24 HR) Succ 25 MG TAB.ER.24H PO SCH (07:57)
[2021-09-28] MEDS: *HR* Heparin 5,000 UNIT/ML VIAL SQ SCH ×2 (06:25→16:36)
[2021-09-28] MEDS: Bumetanide 1 MG TABLET PO SCH ×2 (08:37→16:36)
[2021-09-28] MEDS: Metoprolol XL (24 HR) Succ 25 MG TAB.ER.24H PO SCH (08:37)
[2021-09-28] MEDS: Aspirin 81 MG TAB.CHEW PO SCH (08:37)
[2021-09-28] MEDS: Magnesium Oxide 400 MG TABLET PO SCH (08:37)
[2021-09-28] MEDS: RisperiDAL 3 MG TABLET PO SCH (08:37)
[2021-09-28] MEDS: Nystatin POWDER 30 GM BOTTLE TP PRN (08:38)
[2021-09-29] MEDS: *HR* Heparin 5,000 UNIT/ML VIAL SQ SCH ×2 (08:14→16:08)
[2021-09-29] MEDS: Metoprolol XL (24 HR) Succ 25 MG TAB.ER.24H PO SCH (08:15)
[2021-09-29] MEDS: Magnesium Oxide 400 MG TABLET PO SCH (08:15)
[2021-09-29] MEDS: Bumetanide 1 MG TABLET PO SCH ×2 (08:15→16:08)
[2021-09-29] MEDS: RisperiDAL 3 MG TABLET PO SCH (08:15)
[2021-09-29] MEDS: Aspirin 81 MG TAB.CHEW PO SCH (08:15)
[2021-09-30] MEDS: *HR* Heparin 5,000 UNIT/ML VIAL SQ SCH ×2 (05:26→12:49)
[2021-09-30] MEDS: Bumetanide 1 MG TABLET PO SCH ×2 (07:54→15:31)
[2021-09-30] MEDS: RisperiDAL 3 MG TABLET PO SCH (07:54)
[2021-09-30] MEDS: Magnesium Oxide 400 MG TABLET PO SCH (07:54)
[2021-09-30] MEDS: Aspirin 81 MG TAB.CHEW PO SCH (07:54)
[2021-09-30] MEDS: Metoprolol XL (24 HR) Succ 25 MG TAB.ER.24H PO SCH (07:55)
[2021-10-01] MEDS: *HR* Heparin 5,000 UNIT/ML VIAL SQ SCH ×2 (05:08→11:26)
[2021-10-01] MEDS: RisperiDAL 3 MG TABLET PO SCH (07:06)
[2021-10-01] MEDS: Bumetanide 1 MG TABLET PO SCH ×2 (07:06→15:41)
[2021-10-01] MEDS: Aspirin 81 MG TAB.CHEW PO SCH (07:06)
[2021-10-01] MEDS: Magnesium Oxide 400 MG TABLET PO SCH (07:06)
[2021-10-01] MEDS: Metoprolol XL (24 HR) Succ 25 MG TAB.ER.24H PO SCH (07:07)
[2021-10-02] MEDS: *HR* Heparin 5,000 UNIT/ML VIAL SQ SCH ×2 (05:25→15:31)
[2021-10-02] MEDS: Magnesium Oxide 400 MG TABLET PO SCH (07:58)
[2021-10-02] MEDS: RisperiDAL 3 MG TABLET PO SCH (07:58)
[2021-10-02] MEDS: Metoprolol XL (24 HR) Succ 25 MG TAB.ER.24H PO SCH (07:58)
[2021-10-02] MEDS: Aspirin 81 MG TAB.CHEW PO SCH (07:58)
[2021-10-02] MEDS: Bumetanide 1 MG TABLET PO SCH ×2 (07:59→15:38)
[2021-10-02 18:03] LABS: Basophils % 0.7 %; Eosinophils # 0.3 K/mcL (0.0-0.6); Eosinophils % 5.1 %; Hematocrit 32.1 % (35.3-44.9); Hemoglobin 10.5 g/dL (11.5-15.4); Immature Granulocytes % 0.5 % (0-4); Lymphocytes # 1.4 K/mcL (0.6-4.6); Lymphocytes % 25.4 %; Mean Corpuscular HGB Conc 32.7 g/dL (31.6-35.5); Mean Corpuscular Hemoglobin 31.3 pg (28.0-33.3); Mean Corpuscular Volume 95.5 fL (83.0-100.0); Mean Platelet Volume 9.6 fL (9.4-12.4); Monocytes # 0.8 K/mcL (0.0-1.3); Monocytes % 13.8 %; Neutrophils # 3.1 K/mcL (1.6-8.9); Platelet Count 114 K/mcL (140-400); Red Blood Count 3.36 M/mcL (3.82-4.97); Red Cell Distribution Width 19.5 % (11.5-14.5); Segmented Neutrophils % 54.5 %; White Blood Count 5.6 K/mcL (4.3-11.1)
[2021-10-02 18:29] LABS: Troponin I 0.05 ng/mL (< 0.04)
[2021-10-02 18:40] LABS: Alanine Aminotransferase 11 Units/L (7-52); Albumin 3.5 g/dL (3.5-5.7); Albumin/Globulin Ratio 0.9 (1.1-2.2); Alkaline Phosphatase 61 Units/L (34-104); Aspartate Amino Transferase 19 Units/L (13-39); BUN/Creatinine Ratio 37 (6-26); Bilirubin,Total 0.3 mg/dL (0.3-1.0); Blood Urea Nitrogen 23 mg/dL (8-23); Calcium 9.2 mg/dL (8.6-10.3); Carbon Dioxide 26 mEq/L (23-29); Chloride 100 mEq/L (98-107); Creatine Kinase 34 Units/L (30-223); Globulin 3.7 g/dL (2.4-3.5); Glucose 163 mg/dL (70-105); Osmolality,Calculated 291 (280-300); Potassium 3.4 mEq/L (3.5-5.1); Sodium 137 mEq/L (136-145); Total Protein 7.2 g/dL (6.4-8.9); eGFR For African Americans > 60 (> 60); eGFR For Non-African Americans > 60 (> 60)
[2021-10-02 18:42] LABS: ABG Base Excess 5 mEq/L (-2 to 3); ABG HCO3 29 mEq/L (21-27); ABG Oxygen Saturation 97 % (95-98); ABG PCO2 42 mmHg (35-45); ABG PH 7.45 pH Units (7.32-7.45); ABG PO2 91 mmHg (85-104); ABG TCO2 31 mEq/L (20-26)
[2021-10-03] MEDS: *HR* Heparin 5,000 UNIT/ML VIAL SQ SCH ×2 (05:41→17:58)
[2021-10-03] MEDS: Bumetanide 1 MG TABLET PO SCH ×2 (08:50→17:58)
[2021-10-03] MEDS: Metoprolol XL (24 HR) Succ 25 MG TAB.ER.24H PO SCH (08:50)
[2021-10-03] MEDS: RisperiDAL 3 MG TABLET PO SCH (08:50)
[2021-10-03] MEDS: Aspirin 81 MG TAB.CHEW PO SCH (08:50)
[2021-10-03] MEDS: Magnesium Oxide 400 MG TABLET PO SCH (08:50)
[2021-10-04] MEDS: *HR* Heparin 5,000 UNIT/ML VIAL SQ SCH ×2 (05:06→16:34)
[2021-10-04] MEDS: Aspirin 81 MG TAB.CHEW PO SCH (08:45)
[2021-10-04] MEDS: RisperiDAL 3 MG TABLET PO SCH (08:45)
[2021-10-04] MEDS: Bumetanide 1 MG TABLET PO SCH (08:45)
[2021-10-04] MEDS: Metoprolol XL (24 HR) Succ 25 MG TAB.ER.24H PO SCH (08:45)
[2021-10-04] MEDS: Magnesium Oxide 400 MG TABLET PO SCH (08:45)
[2021-10-05 04:24] LABS: BUN/Creatinine Ratio 53 (6-26); Blood Urea Nitrogen 27 mg/dL (8-23); Calcium 9.2 mg/dL (8.6-10.3); Carbon Dioxide 30 mEq/L (23-29); Chloride 102 mEq/L (98-107); Glucose 95 mg/dL (70-105); Osmolality,Calculated 287 (280-300); Potassium 3.8 mEq/L (3.5-5.1); Sodium 136 mEq/L (136-145); eGFR For African Americans > 60 (> 60); eGFR For Non-African Americans > 60 (> 60)
[2021-10-05] MEDS: *HR* Heparin 5,000 UNIT/ML VIAL SQ SCH ×2 (05:01→16:47)
[2021-10-05] MEDS: Metoprolol XL (24 HR) Succ 25 MG TAB.ER.24H PO SCH (07:55)
[2021-10-05] MEDS: Aspirin 81 MG TAB.CHEW PO SCH (07:55)
[2021-10-05] MEDS: Bumetanide 1 MG TABLET PO SCH (07:56)
[2021-10-05] MEDS: Magnesium Oxide 400 MG TABLET PO SCH (07:56)
[2021-10-05] MEDS: RisperiDAL 3 MG TABLET PO SCH (07:56)
[2021-10-06] MEDS: *HR* Heparin 5,000 UNIT/ML VIAL SQ SCH ×2 (07:18→15:21)
[2021-10-06] MEDS: Metoprolol XL (24 HR) Succ 25 MG TAB.ER.24H PO SCH (07:34)
[2021-10-06] MEDS: Bumetanide 1 MG TABLET PO SCH (07:34)
[2021-10-06] MEDS: RisperiDAL 3 MG TABLET PO SCH (07:34)
[2021-10-06] MEDS: Aspirin 81 MG TAB.CHEW PO SCH (07:34)
[2021-10-06] MEDS: Magnesium Oxide 400 MG TABLET PO SCH (07:34)
[2021-10-07] MEDS: *HR* Heparin 5,000 UNIT/ML VIAL SQ SCH ×2 (05:24→18:16)
[2021-10-07] MEDS: Metoprolol XL (24 HR) Succ 25 MG TAB.ER.24H PO SCH (09:45)
[2021-10-07] MEDS: RisperiDAL 3 MG TABLET PO SCH (09:45)
[2021-10-07] MEDS: Bumetanide 1 MG TABLET PO SCH (09:45)
[2021-10-07] MEDS: Magnesium Oxide 400 MG TABLET PO SCH (09:45)
[2021-10-07] MEDS: Aspirin 81 MG TAB.CHEW PO SCH (09:45)
[2021-10-08] MEDS: *HR* Heparin 5,000 UNIT/ML VIAL SQ SCH ×2 (05:24→11:47)
[2021-10-08 06:38] VITALS: BP 128/64; PULSE 60; TEMP 98; O2SAT 94
[2021-10-08] MEDS: Bumetanide 1 MG TABLET PO SCH (07:09)
[2021-10-08] MEDS: Metoprolol XL (24 HR) Succ 25 MG TAB.ER.24H PO SCH (07:10)
[2021-10-08] MEDS: Aspirin 81 MG TAB.CHEW PO SCH (07:10)
[2021-10-08] MEDS: RisperiDAL 3 MG TABLET PO SCH (07:10)
[2021-10-08] MEDS: Magnesium Oxide 400 MG TABLET PO SCH (07:10)
[2021-10-08 11:09] LABS: Influenza A PCR Negative (Negative); Influenza B PCR Negative (Negative); Resp. Syncytial Virus PCR Negative (Negative)
[2021-10-08 11:19] LABS: SARS-CoV-2 by PCR (In House) Negative (Negative)
== END 2021-10-08 13:25 | DRG 871 ==
LOC: 3BNU 11:28 → EMEROOARM 11:28 → 3BNU 18:56 → SUATTDRO 07-10 12:43 → 2NNU 07-11 17:56 → 2NENU 07-12 20:46 → 2ANU 07-14 00:36
PROVIDERS: ADMIT Hospitalist; ATTEND General Practice